=== PATIENT | male | born 1995 | race Caucasian/White ===

== ENCOUNTER 2020-05-06 22:04 | Outpatient (REF) | payer MEDICAID, SELFPAY ==
[2020-05-06 21:25] LABS: Abs Immature Grans 0.03 10^3/uL (0.0-0.06); Absolute Basophil Count 0.05 10^3/uL (0.0-0.2); Absolute Eosinophil Count 0.14 10^3/uL (0.0-0.7); Absolute Lymphocyte Count 2.79 10^3/uL (1.2-3.4); Absolute Monocyte Count 0.81 10^3/uL (0.1-0.8); Absolute Neutrophil Count 6.65 10^3/uL (1.2-6.7); Basophils % 0.5; Eosinophils % 1.3; HCT 52.2 % (40.0-50.0); HGB 17.4 g/dL (13.5-17.5); Immature Grans % 0.3; Lymphocytes % 26.6; MCH 28.2 pg (27.0-33.0); MCHC 33.3 % (32.0-36.0); MCV 84.7 fL (80-95); MPV 9.3 fL (8.0-11.0); Monocytes % 7.7; Neutrophils % 63.6; Nucleated RBC 0 %; Platelet Count 408 10^3/uL (130-400); RBC 6.16 10^6/uL (4.36-5.78); RDW 12.9 % (11.8-14.1); RDW-SD 39.8 fL; WBC 10.47 10^3/uL (4.4-10.8)
[2020-05-06 21:40] LABS: ALT 68 U/L (16-63); AST 28 U/L (15-37); Albumin 4.4 g/dL (3.4-5.0); Alkaline Phosphatase 92 U/L (46-116); Anion Gap 11.1 mmol/L (3-11); BUN 12 mg/dL (7-18); Bilirubin, Total 1.4 mg/dL (0.2-1.0); CO2 27.9 mmol/L (21.0-32.0); CREATININE 1.28 mg/dL (0.70-1.30); Calcium 9.7 mg/dL (8.5-10.1); Chloride 102 mmol/L (98-107); Glucose 87 mg/dL (74-106); Potassium 4.1 mmol/L (3.5-5.1); Sodium 141 mmol/L (136-145); Total Protein 7.9 g/dL (6.4-8.2)
[2020-05-06 21:41] LABS: Hemoglobin A1C 5.4 % (<5.7)
[2020-05-06 21:59] LABS: Calculated LDL 138 mg/dL (<100); Cholesterol 207 mg/dL (<200); HDL Cholesterol 31 mg/dL (40-60); Triglyceride 192 mg/dL (<150)
== END 2020-05-06 22:24 ==
LOC: LBN 22:04
PROVIDERS: Physician Assistant; PCP Nurse Practitioner; Visit Provider Nurse Practitioner
DX: R11.0 Nausea (principal); Z13.6 Encounter for screening for cardiovascular disorders; Z13.1 Encounter for screening for diabetes mellitus
CPT/HCPCS: 80053; 80061; 83036; 85025

== ENCOUNTER 2020-06-22 01:53 | Outpatient (CLI) | payer MEDICAID, SELFPAY ==
[2020-06-24 10:50] LABS: COVID-19 RT-PCR Result NEGATIVE (Negative)
== END 2020-06-22 02:13 ==
PROVIDERS: PCP Nurse Practitioner; Visit Provider Surgery
DX: Z11.59 Encounter for screening for other viral diseases (principal); Z01.818 Encounter for other preprocedural examination
CPT/HCPCS: U0003

== ENCOUNTER 2020-06-25 11:08 | Day surgery (SDC) | payer MEDICAID, SELFPAY ==
[2020-06-25 11:28] VITALS: BP 125/79; PULSE 117; RESP 16; TEMP 36.4; O2SAT 95
[2020-06-25] MEDS: Lactated Ringers 1,000 ML 80 ML IV (12:00)
--- NOTE | 2020-06-25 13:50 | STOM_PTH ---
PATIENT: Mike Fernandez LOC: [facility] U#:[id number] AGE/SX: 25/M ROOM: RE06/25/[address]: Janelle Singh : 1995 BED: DIS: 06/25/2020 SPEC #: [id number] RECD: 06/25/20 18:44 STATUS: GREGOR REQ #: [id number] EDWARD: 06/25/20 13:[address]: Janelle Singh DEPT: Surgical Specimen RECD BY: Myranda Lopez ENTERED: 06/25/20 18:45 SP TYPE: STOMACH OTHR DR: Pam Vazquez, PhD USER INTERFACE ARTIST Tissues: 1 - BIOPSY BOWEL 2 - STOMACH BIOPSY 3 - STOMACH BIOPSY 4 - ESOPHAGUS BIOPSY 5 - ESOPHAGUS BIOPSY 6 - ESOPHAGUS BIOPSY Procedures: GROSS AND MICRO LEVEL 4 Comments: [id number]
--- NOTE | 2020-06-25 13:57 | ENDO_ITS ---
Date of service: 06/25/20 Time of Service: 13:57 Endoscopy Report DATE OF PROCEDURE: 06/25/20 PRE-OP DIAGNOSIS: peristent nausea on PPI POST-OP DIAGNOSIS: other (normal ) PROCEDURE: EGD w/ bx SURGEON: Janelle Singh ANESTHESIA: GETA ESTIMATED BLOOD LOSS: 1 PATHOLOGY: other COMPLICATIONS: None DISPOSITION: PACU PROCEDURE DESCRIPTION: After informed consent was obtained the patient was take to the procedure room and placed in a supine position. Monitors were applied and a time out was done. The patients name, date of , procedure type, allergies to medications and metal in their body was reviewed. A bite block was placed and the patient was sedated. Once sedated and comfortable the gastroscope was advanced through the oropharynx which was grossly normal into the esophagus. The proximal and mid-esophagus were nl. No esophageal erosions varices diverticula or strictures noted. In the distal esophagus there was nl noted. The scope was advanced into the stomach and through the pylorus into the 3rd portion of the duodenum. The scope was worked into the proximal jejunum and a biopsy was done at this region. Last the duodenum was noted to be nl all specimens are retrieved and no bleeding is noted. Biopsies were done -. The scope was retracted back into the stomach and biopsies were done to rule out H. pylori. There were no ulcers/gastritis. The scope was retroflexed. The cardia and fundus were noted to be normal. There no a hiatal hernia noted. The scope was retracted back into the esophagus and biopsies were done of the GE junction to rule out Vinson's. The scope was removed and the patient was woken up and taken back to [facility] in stable condition. Follow up: 2 wks needs US Findings do not explain pt s/s. EGD is nl today. BX pd.
--- NOTE | 2020-06-25 13:58 | W.PM.DSUDISC ---
Discharge Plan Disposition Patient Disposition: HOME Condition: Good Discharge Details Reason For Visit: egd Attending Provider: Janelle Bermudez Primary Care Provider: Pam Vazquez Home Meds and New Rx's Prescriptions: No Action fluoxetine 20 mg capsule 20 mg PO DAILY Qty: 90 RF: 4 ondansetron HCl [Zofran] 4 mg tablet 4 mg PO Q8H PRN (Reason: nausea and vomiting) Qty: 10 RF: 0 calcium carbonate [Tums] 200 mg calcium (500 mg) tablet,chewable 200 mg PO BID PRNRF: 0 magnesium gluconate 500 mg tablet 500 mg PO HS RF: 0 amitriptyline 25 mg tablet 50 mg PO HS Qty: 180 RF: 3 polyethylene glycol 3350 [Miralax] 17 gram/dose powder 17 g PO DAILY PRN (Reason: constipation) Qty: 119 RF: 0 pantoprazole 20 mg tablet,delayed release (DR/EC) 20 mg PO DAILY Qty: 30 RF: 2 Discharge Instructions Additional Instructions: Findings:nomral US of abdom. Radiology will call to schedule Continue with lifestyle modifications: no alcohol, tobacco products, Aspirin or NSAID's (ibuprofen, Motrin, Naprosyn, aleve, etc). Stop smoking. Try to limits: soda pop/any carbonated beverages, caffeine (including tea & chocolate), and acidic foods, (tomatoes, citrus, onions, peppermints) spicy or fried/fatty foods. Do not lie down for 30 minutes after eating, and do not eat 2 hours prior to bedtime. Avoid wearing tight fitting clothing/ belts. No alcohol for 2weeks. Follow up: dr. bermudez in 2-3 wks Please call if you develop: fevers >101.5 Nausea or Vomiting Abdominal pain that is not transient DAY SURGERY UNIT POST COLONOSCOPY INSTRUCTIONS 1. Because there will be medication in your system for the next 24 hours, you may feel a little sleepy. Your coordination will be affected. Therefore: a. Do not drive or operate dangerous equipment for 24 hours. b. Do not drink alcohol beverages for 24 hours (not even beer). c. Plan to go home and rest for the day. 2. Generally there are no restrictions on your activity after a day or so has gone by, but you may feel a bit fatigued for a few days. 3 After you arrive home you may have a light meal and return to a normal diet as you can tolerate it without feeling sick to your stomach. 4. After surgery, you may feel pain or discomfort. This should be only transient, but if it persists please contact your doctor. 5. If there are any questions regarding the findings of your procedure, please feel free to contact your doctor. 6. If you are unable to contact your doctor with a problem, contact the hospital at [phone]. 7. Continue all your regular medications unless directed otherwise. I understand the above instructions and have no questions. Signature of Patient or Responsible Adult Escort Date/Time Name of Responsible Adult Escort Signature of Nurse Date/Time Activity:: no lifting over 20#'s or strenuous activity x 24 hrs Diet:: small/ light/soft meals x 24 hrs Discharge Orders Discharge Orders: Discharge Order (Routine); Ordered 06/25/20 Ordered By: Janelle Bermudez DS: Diagnosis Discharge Diagnosis (1) Nausea: Status: Acute
[2020-06-25 14:33] VITALS: BP 132/86; PULSE 114; RESP 16; TEMP 37; O2SAT 94
== END 2020-06-25 14:47 | disposition home or self-care (01) ==
PROVIDERS: PCP Nurse Practitioner; Visit Provider Surgery
PROC: 0DJ68ZZ Inspection of Stomach, Via Natural or Artificial Opening Endoscopic (ICD-10-PCS; CPT 43235; principal; 2020-06-25 11:15)
DX: R11.0 Nausea (principal); K31.89 Other diseases of stomach and duodenum; K21.00 Gastro-esophageal reflux disease with esophagitis, without bleeding
CPT/HCPCS: 43239; 88305; J2001

== ENCOUNTER 2020-07-13 02:51 | Outpatient (CLI) | payer MEDICAID, SELFPAY ==
--- NOTE | 2020-07-13 07:15 | DI.US_ITS ---
EXAM: US ABDOMEN CLINICAL HISTORY: Nl EGD/peristent nausea /elevated alk phos,,R11.0 TECHNIQUE: Ultrasound abdomen performed using standard protocol. COMPARISON: No exams were available for comparison FINDINGS: ABDOMINAL AORTA AND IVC: Visualized portions normal caliber. PANCREAS: Normal where visualized. LIVER: There is diffuse increased echogenicity of the liver consistent with fatty infiltration. The liver measures 15.4 cm in length. Hepatopedal flow in the Portal Vein. GALLBLADDER: No evidence of cholelithiasis. No evidence of wall thickening. No pericholecystic fluid identified. BILIARY SYSTEM: Common bile duct measures < 7 mm. No intrahepatic biliary ductal dilation. FREDERICK'S SIGN: Negative. KIDNEYS: Kidneys are symmetric in size. No evidence of renal calculi. No evidence of hydronephrosis. No renal mass or cyst identified. SPLEEN: Not enlarged. ASCITES: None seen. IMPRESSION: Fatty infiltration of the liver. DATA REPOSITORY:
== END 2020-07-13 03:11 ==
PROVIDERS: PCP Nurse Practitioner; Visit Provider Surgery
DX: K76.0 Fatty (change of) liver, not elsewhere classified (principal); R11.0 Nausea
CPT/HCPCS: 76700

== ENCOUNTER 2021-10-22 19:30 | Emergency (ER) | payer MEDICAID, SELFPAY ==
[2021-10-22 19:44] VITALS: BP 100/66; PULSE 80; RESP 18; TEMP 36.8; O2SAT 98
--- NOTE | 2021-10-22 20:41 | W.ED.GENAD ---
Discharge Plan Disposition Patient Disposition: HOME Condition: Improving Discharge Details Clinical Impression: Finger laceration Primary Care Provider: Pam Vazquez ED Provider: Conor Rodriguez Home Meds and New Rx's Prescriptions: Continued fluoxetine 20 mg capsule 20 mg PO DAILY Qty: 90 4RF calcium carbonate [Tums] 200 mg calcium (500 mg) tablet,chewable 200 mg PO BID PRN0RF doxycycline hyclate 100 mg capsule 100 mg PO BID Qty: 20 0RF polyethylene glycol 3350 [Miralax] 17 gram/dose powder 17 g PO DAILY PRN (Reason: constipation) Qty: 119 0RF lansoprazole [Prevacid] 30 mg capsule,delayed release(DR/EC) 30 mg PO DAILY Qty: 30 12RF amitriptyline 25 mg tablet 50 mg PO HS Qty: 180 3RF ondansetron HCl [Zofran] 4 mg tablet 4 mg PO Q8H PRN (Reason: nausea and vomiting) Qty: 60 0RF Discharge Instructions Instructions: Finger Laceration (ED) Additional Instructions: Tetanus status updated. At this time closure was obtained using Dermabond and then a finger splint was applied, sutures were declined. Wear splint for 7-10 days. [id number] Tylenol and/or Motrin as directed for discomfort. Please watch for new or worsening symptoms and return to the ER for any concerns Medical Decision Making 26-year-old gentleman, [id number], presents for a right fourth finger laceration that he sustained 1 hour ago. Tetanus status will need to be updated. Patient would prefer not to have sutures. The laceration was thoroughly cleaned and then approximated using Dermabond and then a splint was applied. Patient tolerated well and has no additional questions or concerns. Standard discharge and return precautions were provided. This documentation was generated using [employer]ET[employer]ation system, please disregard any oddities of phrase or misspellings. Medical Records Medical records reviewed: Yes I reviewed the patient's medical records. HPI General Mode of arrival: ambulatory. Date/Time Provider Initiated Documentation: 10/22/21 20:06. Limitations to Documentation: no limitations. Information obtained by: patient. History of Present Illness 26 year old M presents to the emergency department with the chief complaint of hand lac, described as mild, with intensity rated at 2. Quality is described as aching, and is localized to the right and upper extremity. Patient reports no radiation. Patient started experiencing this hour(s) (1) and it has been constant. No exacerbating factors reported . Patient notes no other symptoms.. Patient did receive the following treatments prior to arrival, none Related Data Home Medications Medication Instructions Recorded Confirmed fluoxetine 20 mg capsule 20 mg PO DAILY #90 cap 08/08/19 12/23/20 polyethylene glycol 3350 17 17 g PO DAILY PRN #119 g 05/14/20 12/23/20 gram/dose oral powder (Miralax) calcium carbonate 200 mg calcium 200 mg PO BID PRN 06/14/20 12/23/20 (500 mg) chewable tablet (Tums) amitriptyline 25 mg tablet 50 mg PO HS #180 tab-cap 08/05/20 12/23/20 lansoprazole 30 mg capsule,delayed 30 mg PO DAILY #30 cap 08/05/20 12/23/20 release (Prevacid) doxycycline hyclate 100 mg capsule 100 mg PO BID #20 cap 12/23/20 12/23/20 ondansetron HCl 4 mg tablet 4 mg PO Q8H PRN #60 tab 02/01/21 (Zofran) Previous Rx's Medication Instructions Recorded fluoxetine 20 mg capsule 20 mg PO DAILY #90 cap 08/08/19 polyethylene glycol 3350 17 17 g PO DAILY PRN #119 g 05/14/20 gram/dose oral powder (Miralax) amitriptyline 25 mg tablet 50 mg PO HS #180 tab-cap 08/05/20 lansoprazole 30 mg capsule,delayed 30 mg PO DAILY #30 cap 08/05/20 release (Prevacid) doxycycline hyclate 100 mg capsule 100 mg PO BID #20 cap 12/23/20 ondansetron HCl 4 mg tablet 4 mg PO Q8H PRN #60 tab 02/01/21 (Zofran) Allergies Allergy/AdvReac Type Severity Reaction Status Date / Time No Known Drug Allergies Allergy Verified 12/23/20 14:31 General Stated Complaint: Laceration JANNY: 4 Review of Systems Constitutional Constitutional: Denies weakness Musculoskeletal Musculoskeletal: Denies deformity, Denies arthralgias, Denies numbness, Denies stiffness and Denies tingling Integumentary/Breasts Skin/Breast: Reports erythema Neurologic Neurologic: Denies numbness, Denies tingling and Denies weakness PFSH All Active Problems Finger laceration (Acute) Epididymitis (Acute) Nausea (Acute) Nausea (Acute) Insomnia (Acute) Mild obstructive sleep apnea (Acute) sleep study 03/21/19-Dr Zimmer 04/14/19-sleep clinic note: CPAP rx. Gastroesophageal reflux disease (Acute 09/05/16) Depression with anxiety (Acute 09/05/16) Medical History Attention deficit hyperactivity disorder (ADHD) (09/05/16) Surgical History History of esophagogastroduodenoscopy (EGD) (~06/25/20) Family History Mother Depression Father Alcohol abuse Heart disease Depression Paternal Grandfather Testicular cancer Heart disease Sister Depression Maternal Grandfather Heart disease Maternal Grandmother Heart disease Paternal Grandmother Heart disease Social History Smoking/Tobacco Use Status: Never Smoking risk assessment performed?: Yes Alcohol Intake: current Alcohol Intake frequency: a few times a month Alcohol type: beer, wine and hard liquor Drug use: Never Substance use type: does not use Adopted: No Household members: significant other and family Housing: apartment Communication Needs: None Do you need help understanding health information?: Often Pets and animals: No Sexually active: Yes Do you think of yourself as: bisexual Current gender identity: male What is your relationship status?: living with partner How often do you talk on the phone with friends or family?: twice per week How often do you get together with friends or relatives?: twice per week How often do you attend worship or jehovah's witness services?: 1-3 times per year Do you belong to any clubs or organized social groups?: no Panel score (0-1 are the most socially isolated patients): 2 What type of physical activity do you participate in: other Details: lacrosse and running Duration: 15-30 minutes/day Frequency: 5-6 times per week Melonie/Tenriism: Druze Special melonie needs: No Seatbelt use: always Drive intox or ride w/intox bobtail driver: No Do you feel safe at home: Yes Do you feel safe in your relationship?: Yes Exam Const General: cooperative, healthy appearing, comfortable and no acute distress Orientation: alert and awake [facility] Head: normal to inspection, normocephalic and atraumatic Eyes Conjunctivae: conjunctivae normal Neck Neck: normal visual inspection, trachea midline and supple Resp Effort & Inspection: normal respiratory effort and able to speak in complete sentences Cardio Rate: regular rate Rhythm: regular rhythm Skin General skin exam: no rashes or lesions noted Neuro General: patient alert, patient awake, moves all extremities and no focal motor deficits Cognition: normal cognition Speech: speech normal Gait: normal gait Motor: muscle tone normal throughout Sensory Exam: no sensory deficits noted Extrem General: full ROM and capillary refill normal Hand/finger images: 1. There is a well approximated 1.5 cm laceration. No active bleeding. No tenderness. Full range of motion. 5-5 strength. Neuro, vascular, tendon intact. No obvious foreign body. Psych Appearance: grossly normal Mental Status: mental status grossly normal Course Vital Signs Vital signs: Vital Signs Temperature 36.8 C 10/22/21 19:44 Pulse 80 10/22/21 19:44 Respiratory Rate 18 10/22/21 19:44 Blood Pressure 100/66 10/22/21 19:44 Pulse Oximetry 98 10/22/21 19:44 Temperature 36.8 C 10/22/21 19:44 Temperature Source Tympanic 10/22/21 19:44 Pulse 80 10/22/21 19:44 Respiratory Rate 18 10/22/21 19:44 Respiratory Effort 10/22/21 19:47 Blood Pressure 100/66 10/22/21 19:44 Blood Pressure Position Supine 10/22/21 19:44 Pulse Oximetry 98 10/22/21 19:44 Oxygen Delivery Method Room Air 10/22/21 19:44 Oxygen Flow Rate 0 10/22/21 19:44 Pain Level 0 10/22/21 19:44 PAWSS Have you Been Recently Intoxicated or Drunk Within the Last 30 days?: No Have you Ever Experienced Previous Episodes of Alcohol Withdrawal?: No Have you ever Experienced Withdrawal Seizures?: No Have you ever Experienced Delirium Tremens(DT)s?: No Have you ever undergone Alcohol Rehabilitation Treatment (i.e, inpt ot outpatient treatment programs)?: No Have you ever Experienced Blackouts?: No Have you ever Combined Alcohol with other Downers within the last 90 days?: No Have you ever Combined Alcohol with any other Substance of Abuse during the last 90 days?: No Positive Blood Alcohol level on Presentation? [PCS.BAL]: No Evidence of Increased Autonomic Activity (i.e. HR>120, tremor, sweating, agitation, nausea)?: No Result: 0
== END 2021-10-22 20:48 | disposition home or self-care (01) ==
PROVIDERS: Emergency Provider Physician Assistant; PCP Nurse Practitioner
DX: S61.214A Laceration without foreign body of right ring finger without damage to nail, initial encounter (principal); W26.0XXA Contact with knife, initial encounter
CPT/HCPCS: 12001; 29130; 90471

== ENCOUNTER 2023-04-11 23:43 | Emergency (ER) | payer MEDICAID, SELFPAY ==
[2023-04-11 23:47] VITALS: BP 160/84; PULSE 117; RESP 18; O2SAT 97
--- NOTE | 2023-04-11 23:50 | ED.GENADUL_ITS ---
Discharge Plan Disposition Patient Disposition: Home Discharge Details Chief Complaint: Orthopedic Clinical Impression: Sprain of ankle, right Primary Care Provider: Unknown,Unknown ED Provider: Humberto Murrell Home Meds and New Rx's Prescriptions: No Action fluoxetine 20 mg capsule 20 mg PO DAILY Qty: 90 4RF Patient Comments: not taking 04/11/23 calcium carbonate [Tums] 200 mg calcium (500 mg) tablet,chewable 200 mg PO BID PRN Patient Comments: not taking 04/11/23 doxycycline hyclate 100 mg capsule 100 mg PO BID Qty: 20 0RF Patient Comments: not taking 04/11/23 polyethylene glycol 3350 [Miralax] 17 gram/dose powder 17 g PO DAILY PRN (Reason: constipation) Qty: 119 0RF Patient Comments: not taking 04/11/23 lansoprazole [Prevacid] 30 mg capsule,delayed release(DR/EC) 30 mg PO DAILY Qty: 30 12RF Patient Comments: not taking 04/11/23 amitriptyline 25 mg tablet 50 mg PO HS Qty: 180 3RF Patient Comments: not taking 04/11/23 ondansetron HCl [Zofran] 4 mg tablet 4 mg PO Q8H PRN (Reason: nausea and vomiting) Qty: 60 0RF Patient Comments: not taking 04/11/23 Discharge Instructions Instructions: Ankle Sprain (ED) Additional Instructions: At this time your x-ray shows no evidence of fracture thankfully. Please take Tylenol and Motrin as needed for pain. Please use the ankle boot for the next 1 to 2 weeks to help as your foot heals. If you notice any worsening of your symptoms, or any new symptoms such as vomiting, diarrhea, fever, chills, shortness of breath, chest pain, numbness, weakness, or fainting , please return immediately to the emergency department for reevaluation. Please follow up with your primary care provider as soon as possible for reassessment and reevaluation. As always, it was a pleasure participating in your medical care today. Medical Decision Making 28-year-old male with no significant past medical history except for GERD, presents today for evaluation of right lateral foot pain. Patient states that he was walking in his house, and his foot stepped on an object on the ground which caused his foot to invert. He heard a pop and immediately had pain in the lateral aspect of his right foot. Pain is made worse with movement. Improved by nothing. Pain/injury occurred about 3 hours ago. No numbness or tingling. No other complaints at this time. Exam demonstrates tenderness over the lateral aspect of the foot over the fifth metatarsal. No signs of bruising or significant swelling. No tenderness over the medial or lateral malleolus. No other abnormalities. Suspect potential osseous or ligamentous injury. Will give NSAIDs and get an x-ray, monitor closely and reassess. X-ray negative for any evidence of fracture. Will give a short walking boot for home. Suspect mild ligamentous sprain. Recommend NSAIDs at home. Discussed red flags for which to return. I have extensively reviewed the treatment plan and discharge instructions with the patient. I have addressed all patient concerns at this time. The patient was made aware of what symptoms to monitor for that would warrant a return to the emergency department. Discussed the plan with the patient, they demonstrate verbal understanding and agreement with our assessment and plan at this time. The documentation in this chart was dictated using Retro[employer] dictation software. Please excuse any dictation errors. FINDINGS: Bones/joints: Posterior calcaneal spur. No acute fracture or subluxation. Soft tissues: Normal. IMPRESSION: No acute bony pathology. Thank you for allowing us to participate in the care of your patient. Dictated and Authenticated by: Flaquita Workman MD 04/12/2023 12:50 AM Eastern Time ([place] & [place]) HPI General Date/Time Provider Initiated Documentation: 04/11/23 23:44 . HPI Narrative: 28-year-old male with no significant past medical history except for GERD, presents today for evaluation of right lateral foot pain. Patient states that he was walking in his house, and his foot stepped on an object on the ground which caused his foot to invert. He heard a pop and immediately had pain in the lateral aspect of his right foot. Pain is made worse with movement. Improved by nothing. Pain/injury occurred about 3 hours ago. No numbness or tingling. No other complaints at this time. Related Data Home Medications Medication Instructions Recorded Confirmed fluoxetine 20 mg capsule 20 mg PO DAILY #90 caps 08/08/19 12/23/20 polyethylene glycol 3350 17 17 g PO DAILY PRN constipation 05/14/20 12/23/20 gram/dose oral powder (Miralax) #119 grams calcium carbonate 200 mg calcium 200 mg PO BID PRN 06/14/20 12/23/20 (500 mg) chewable tablet (Tums) amitriptyline 25 mg tablet 50 mg PO HS #180 tab-caps 08/05/20 12/23/20 lansoprazole 30 mg capsule,delayed 30 mg PO DAILY #30 caps 08/05/20 12/23/20 release (Prevacid) doxycycline hyclate 100 mg capsule 100 mg PO BID #20 caps 12/23/20 12/23/20 ondansetron HCl 4 mg tablet 4 mg PO Q8H PRN nausea and 02/01/21 (Zofran) vomiting #60 tabs Previous Rx's Medication Instructions Recorded fluoxetine 20 mg capsule 20 mg PO DAILY #90 caps 08/08/19 polyethylene glycol 3350 17 17 g PO DAILY PRN constipation 05/14/20 gram/dose oral powder (Miralax) #119 grams amitriptyline 25 mg tablet 50 mg PO HS #180 tab-caps 08/05/20 lansoprazole 30 mg capsule,delayed 30 mg PO DAILY #30 caps 08/05/20 release (Prevacid) doxycycline hyclate 100 mg capsule 100 mg PO BID #20 caps 12/23/20 ondansetron HCl 4 mg tablet 4 mg PO Q8H PRN nausea and 02/01/21 (Zofran) vomiting #60 tabs Allergies Allergy/AdvReac Type Severity Reaction Status Date / Time No Known Drug Allergies Allergy Verified 12/23/20 14:31 General JANNY: 4 Review of Systems All systems reviewed & are unremarkable except as noted in HPI and below PFSH All Active Problems (Updated 04/12/23 @ 00:53 by Humberto Murrell DO) Sprain of ankle, right (Acute) Epididymitis (Acute) Nausea (Acute) Nausea (Acute) Insomnia (Acute) Mild obstructive sleep apnea (Acute) sleep study 03/21/19-Dr Zimmer 04/14/19-sleep clinic note: CPAP rx. Gastroesophageal reflux disease (Acute 09/05/16) Depression with anxiety (Acute 09/05/16) Medical History Attention deficit hyperactivity disorder (ADHD) (09/05/16) Surgical History History of esophagogastroduodenoscopy (EGD) (~06/25/20) Family History Mother Depression Father Alcohol abuse Heart disease Depression Paternal Grandfather Testicular cancer Heart disease Sister Depression Maternal Grandfather Heart disease Maternal Grandmother Heart disease Paternal Grandmother Heart disease Social History Smoking/Tobacco Use Status: Never Smoking risk assessment performed?: Yes Alcohol Intake: current Alcohol Intake frequency: a few times a month Alcohol type: beer, wine and hard liquor Drug use: Never Substance use type: does not use Adopted: No Household members: significant other and family Housing: apartment Communication Needs: None Do you need help understanding health information?: Often Pets and animals: No Sexually active: Yes Do you think of yourself as: bisexual Current gender identity: male What is your relationship status?: living with partner How often do you talk on the phone with friends or family?: twice per week How often do you get together with friends or relatives?: twice per week How often do you attend holiness or sikh services?: 1-3 times per year Do you belong to any clubs or organized social groups?: no Panel score (0-1 are the most socially isolated patients): 2 What type of physical activity do you participate in: other Details: lacrosse and running Duration: 15-30 minutes/day Frequency: 5-6 times per week Melonie/Christianity: Methodist Special melonie needs: No Seatbelt use: always Drive intox or ride w/intox tanker driver: No Do you feel safe at home: Yes Do you feel safe in your relationship?: Yes Exam Narrative Exam Narrative: 1.Const: Well-nourished, Well-developed, appearing stated age 2.Eyes: PERRL, no conjunctival injection, and symmetrical lids. 3.ENT: Atraumatic external nose and ears. Moist MM. Neck: Symmetric, trachea midline, No thyromegaly. 4.CVS: +S1/S2, No murmurs or gallops. Peripheral pulses 2+ and equal in all extremities. Brisk capillary refill in all extremities. 5.RESP: Unlabored respiratory effort. Clear to auscultation bilaterally. No wheezes rales or rhonchi 6.GI: Soft, Nontender/Nondistended, No hepatosplenomegaly. No guarding or rebound. 7.MSK: Normocephalic, Extremities w/o deformity. Exam demonstrates evidence of tenderness on the lateral aspect of the right foot over the fifth metatarsal. Patient demonstrates worsening pain with active plantarflexion and eversion. No pain with dorsiflexion and inversion. No significant calcaneal tenderness. No tenderness over the toes. No tenderness over the medial or lateral malleoli. Normal neurovascular exam. 8.Skin: Warm, Dry. No rashes or lesions. 9.Neuro: client support consultant II-XII grossly intact. Sensation grossly intact, no focal neurologic deficits. 10.Psych: (AAO) x3. Appropriate mood and affect
[2023-04-12] MEDS: Ibuprofen 800 MG TAB PO (00:12)
[2023-04-12] MEDS: Acetaminophen 500 MG TAB 1000 MG PO (00:12)
--- NOTE | 2023-04-12 00:51 | DI.VRAD_ITS ---
PROCEDURE INFORMATION: Exam: XR Right Foot Exam date and time: 04/12/2023 00:17 Age: 28 years old Clinical indication: Other: Right lateral foot pain after inversion TECHNIQUE: Imaging protocol: Radiologic exam of the right foot. Views: 3 or more views. COMPARISON: No relevant prior studies available. FINDINGS: Bones/joints: Posterior calcaneal spur. No acute fracture or subluxation. Soft tissues: Normal. IMPRESSION: No acute bony pathology. Dictated and Authenticated by: Flaquita Workman MD. Ordering:MK Paul MD
--- NOTE | 2023-04-12 23:45 | DI.RAD_ITS ---
Exam(s) XR FOOT RT COMPLETE EXAM: XR FOOT RT COMPLETE CLINICAL HISTORY: right lateral foot pain after inversion. TECHNIQUE: 2D digital imaging was performed of the right foot. Three images were obtained. AP, obl ique and lateral views were obtained. COMPARISON: No exams were available for comparison FINDINGS: BONES: No acute fracture is present. No bony destructive lesion is seen. There is a small enthesophyt e at the posterior calcaneus. JOINTS: No dislocation present. SOFT TISSUE: Normal. IMPRESSION: No acute abnormality. DATA REPOSITORY: RADIATION DOSE DELIVERED:
== END 2023-04-12 01:10 | disposition home or self-care (01) ==
PROVIDERS: Emergency Provider Student in an Organized Health Care Education/Training Program
DX: S93.401A Sprain of unspecified ligament of right ankle, initial encounter (principal); W01.0XXA Fall on same level from slipping, tripping and stumbling without subsequent striking against object, initial encounter; Y93.01 Activity, walking, marching and hiking; Y92.018 Other place in single-family (private) house as the place of occurrence of the external cause; Y99.9 Unspecified external cause status
CPT/HCPCS: 99283; 73630

== ENCOUNTER 2024-05-15 17:50 | Emergency (ER) | payer MEDICAID, SELFPAY ==
[2024-05-15 17:54] VITALS: BP 128/89; PULSE 104; RESP 16; TEMP 36.2; O2SAT 97
[2024-05-15] MEDS: Ketorolac 30 MG/ML VIAL 15 MG IVP (18:24)
[2024-05-15] MEDS: Dexamethasone 4 MG/ML VIAL IVP (18:24)
[2024-05-15] MEDS: Ondansetron 4 MG/2 ML VIAL IVP (18:25)
[2024-05-15] MEDS: Normal Saline 500 ML IV (18:25)
--- NOTE | 2024-05-15 18:39 | ED.GENADUL_ITS ---
Discharge Plan Disposition Patient Disposition: Home Condition: Stable Discharge Details Clinical Impression: Headache, Nausea Primary Care Provider: Unknown,Unknown ED Provider: Graciela Yarbrough Home Meds and New Rx's Prescriptions: Continued fluoxetine 20 mg capsule 20 mg PO DAILY Qty: 90 4RF Patient Comments: not taking 04/11/23 calcium carbonate [Tums] 200 mg calcium (500 mg) tablet,chewable 200 mg PO BID PRN Patient Comments: not taking 04/11/23 doxycycline hyclate 100 mg capsule 100 mg PO BID Qty: 20 0RF Patient Comments: not taking 04/11/23 polyethylene glycol 3350 [Miralax] 17 gram/dose powder 17 g PO DAILY PRN (Reason: constipation) Qty: 119 0RF Patient Comments: not taking 04/11/23 lansoprazole [Prevacid] 30 mg capsule,delayed release(DR/EC) 30 mg PO DAILY Qty: 30 12RF Patient Comments: not taking 04/11/23 amitriptyline 25 mg tablet 50 mg PO HS Qty: 180 3RF Patient Comments: not taking 04/11/23 ondansetron HCl [Zofran] 4 mg tablet 4 mg PO Q8H PRN (Reason: nausea and vomiting) Qty: 60 0RF Patient Comments: not taking 04/11/23 Discharge Instructions Instructions: Headache, Adult ED, Nausea and Vomiting, Adult ED Additional Instructions: Follow up with primary care provider in 3-5 days. Return to ED sooner if any worsening or concerns. Increase oral fluids. Take the nausea medications as directed. Referrals: Primary Care Provider [Outside] - 5 days HPI General Mode of arrival: ambulatory . Date/Time Provider Initiated Documentation: 05/15/24 18:05 . Limitations to Documentation: no limitations . Information obtained by: patient, RN notes reviewed and old records reviewed . HPI Narrative: 29-year-old male presents to the ER with chief complaint of headache which started around 1:00 today, lightheadedness nausea. He does appear somewhat pale does have a history of ADHD. Denies any recent head injuries denies any fever cough URI type symptoms or any other concerns. Denies any visual disturbances or blurry vision. Related Data Home Medications ?Medication ?Instructions ?Recorded ?Confirmed fluoxetine 20 mg capsule 20 mg PO DAILY #90 caps 08/08/19 12/23/20 polyethylene glycol 3350 17 17 g PO DAILY PRN constipation 05/14/20 12/23/20 gram/dose oral powder (Miralax) #119 grams calcium carbonate (Tums) 200 mg PO BID PRN 06/14/20 12/23/20 amitriptyline 25 mg tablet 50 mg (2 x 25 mg) PO HS #180 08/05/20 12/23/20 tab-caps lansoprazole 30 mg capsule,delayed 30 mg PO DAILY #30 caps 08/05/20 12/23/20 release (Prevacid) doxycycline hyclate 100 mg capsule 100 mg PO BID #20 caps 12/23/20 12/23/20 ondansetron HCl 4 mg tablet 4 mg PO Q8H PRN nausea and 02/01/21 (Zofran) vomiting #60 tabs Previous Rx's ?Medication ?Instructions ?Recorded fluoxetine 20 mg capsule 20 mg PO DAILY #90 caps 08/08/19 polyethylene glycol 3350 17 17 g PO DAILY PRN constipation 05/14/20 gram/dose oral powder (Miralax) #119 grams amitriptyline 25 mg tablet 50 mg (2 x 25 mg) PO HS #180 08/05/20 tab-caps lansoprazole 30 mg capsule,delayed 30 mg PO DAILY #30 caps 08/05/20 release (Prevacid) doxycycline hyclate 100 mg capsule 100 mg PO BID #20 caps 12/23/20 ondansetron HCl 4 mg tablet 4 mg PO Q8H PRN nausea and 02/01/21 (Zofran) vomiting #60 tabs Allergies Allergy/AdvReac Type Severity Reaction Status Date / Time No Known Drug Allergies Allergy Other (See Verified 05/15/24 17:57 Comment) General Stated Complaint: Headache JANNY: 4 Review of Systems All systems reviewed & are unremarkable except as noted in HPI and below Constitutional Constitutional: Reports as per HPI and Reports headache(s) ENT Ears, Nose, Mouth, and Throat: Reports headache(s) Gastrointestinal Gastrointestinal: Reports nausea Neurologic Neurologic: Reports headache(s) Exam Narrative Exam Narrative: Constitutional: Alert and oriented x3. Appears stated age. Normal body habitus. Head: Normocephalic, no trauma. Eyes: Pupils PERRL, Red reflex noted, EOM's intact. Eyelids symmetrical without lesions, discharge, or swelling. ENT: Bilateral TM's WNL, External ear normal to inspection, no mastoid TTP, swelling, or erythema, Nasal turbinates WNL, no nasal discharge. Normal dentition, Posterior pharynx WNL, no exudate. Chest: RRR, Normal S1, S2, distal pulses intact. Resp: Lungs clear to auscultation bilaterally, no wheezes, rales, or rhonchi. Abdomen: Soft, non-distended, Normoactive bowel sounds all 4 quads. Musculoskeletal: Normal gait, Moves all 4 extremities without difficulty. Skin: No suspicious rashes or lesions. Capillary refill less than 2 sec. Neurologic: Cranial nerves II-XII intact. Alert and oriented x 3. Motor: No deficits noted. Sensory: Intact bilaterally all 4 extremities. Hematologic/Lymphatic: No ecchymosis, no lymphadenopathy. Course Vital Signs Vital signs: Vital Signs Temperature 36.2 C L 05/15/24 17:54 Pulse 104 H 05/15/24 17:54 Respiratory Rate 16 05/15/24 17:54 Blood Pressure 128/89 05/15/24 17:54 Pulse Oximetry 97 05/15/24 17:54 Temperature 36.2 C L 05/15/24 17:54 Temperature Source Temporal Artery Scan 05/15/24 17:54 Pulse 104 H 05/15/24 17:54 Respiratory Rate 16 05/15/24 17:54 Blood Pressure 128/89 05/15/24 17:54 Blood Pressure Position Sitting 05/15/24 17:54 Pulse Oximetry 97 05/15/24 17:54 Oxygen Delivery Method Room Air 05/15/24 17:54 Oxygen Flow Rate 0 05/15/24 17:54 Pain Level 5 05/15/24 17:54 Medical Decision Making 29-year-old male presents to the ER with chief complaint of headache which started around 1:00 today, lightheadedness nausea. He does appear somewhat pale does have a history of ADHD. Denies any recent head injuries denies any fever cough URI type symptoms or any other concerns. Denies any visual disturbances or blurry vision. IV, normal saline 500 cc ordered, dexamethasone, Toradol, Zofran ordered. On patient reevaluation he reports feeling somewhat better. IV is infusing at this time. Patient is feeling better he is requesting to be discharged home. Instructed return instructions and follow-up care. This text was generated using Nuance dictation system, please disregard any oddities of phrase or misspellings. Quality:SDOH Health Related Social Needs: No Data to Display PFSH All Active Problems (Updated 05/15/24 @ 19:18 by Graciela Yarbrough NP) Nausea (Acute) Headache (Acute) Epididymitis (Acute) Nausea (Acute) Nausea (Acute) Insomnia (Acute) Mild obstructive sleep apnea (Acute) sleep study 03/21/19-Dr Zimmer 04/14/19-sleep clinic note: CPAP rx. Gastroesophageal reflux disease (Acute 09/05/16) Depression with anxiety (Acute 09/05/16) Medical History Attention deficit hyperactivity disorder (ADHD) (09/05/16) Surgical History History of esophagogastroduodenoscopy (EGD) (~06/25/20) Family History Mother Depression Father Alcohol abuse Heart disease Depression Paternal Grandfather Testicular cancer Heart disease Sister Depression Maternal Grandfather Heart disease Maternal Grandmother Heart disease Paternal Grandmother Heart disease Social History Smoking/Tobacco Use Status: Never Smoking risk assessment performed?: Yes Alcohol Intake: current Alcohol Intake frequency: a few times a month Alcohol type: beer, wine and hard liquor Drug use: Never Substance use type: does not use Adopted: No Household members: significant other and family Housing: apartment Communication Needs: None Do you need help understanding health information?: Often Pets and animals: No Sexually active: Yes Do you think of yourself as: bisexual Current gender identity: male What is your relationship status?: living with partner How often do you talk on the phone with friends or family?: twice per week How often do you get together with friends or relatives?: twice per week How often do you attend buddhist or baptism services?: 1-3 times per year Do you belong to any clubs or organized social groups?: no Panel score (0-1 are the most socially isolated patients): 2 What type of physical activity do you participate in: other Details: lacrosse and running Duration: 15-30 minutes/day Frequency: 5-6 times per week Melonie/Methodist: Worship Special melonie needs: No Seatbelt use: always 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
[2024-05-15] MEDS: Ondansetron O.D.T. 4 MG TABEF, 3 TABS/BTL PO (19:22)
--- OUTSIDE RECORDS SUMMARY | 2024-05-15 20:34 | XMS_ITS | Encounter Summary ---
Author Organization [facility]ly [facility] [place] [address] Care Team Providers Care Waste Examiner Name Role Phone Pam Vazquez APRN Primary Care Provider [phone] Encounter Details Date Type Department Care Team (Late st Contact Info) Description 03/24/2021 11:59 PM EDT Anesthesia Event Gastroenterology at [facility] [place] [address] [facility] [address] ANESTHESIOLOGY [place] [id number] Anesthesia Record Procedure Summary Procedure Name Responsible Anesthesiologist Anesthesia Start Time Anesthesia Stop Time COLONOSCOPY, DIAGNOSTIC (WRVU 3.26) (Trunk) Events No events on file. Meds * Agents No agents on file. * Blood No blood administrations on file. Lines, Drains, and Airways No LDAs on file. documented in this encounter Social History Tobacco Use Types Packs/Day Years Used Date Smoking Tobacco: Never Smokeless Tobacco: Never Alcohol Use Standard Drinks/Week Comments Not Currently 0 (1 standard drink = 0.6 oz pur e alcohol) Used to be a heavy drinker Sex and Gender Information Value Date Recorded Sex Assigned at Not on file Gender Identity Not on file Sexual Orientation Not on file documented as of this encounter OR Notes * Anesthesia Preprocedure Evaluation - Katy Kay MD - 03/24/2021 11:42 AM EDT Pre-Anesthesia Evaluation for: Mike Fernandez a 26 y.o. male. Procedure(s): COLONOSCOPY, DIAGNOSTIC EGD, UPPER GI ENDOSCOPY There are no problems to display for this patient. Past Medical History: Diagnosis Date ??? ADHD ??? Chronic epididymitis ??? Fatty liver History reviewed. No pertinent surgical history. Social History Tobacco Use ??? Smoking status: Never Smoker ??? Smokeless tobacco: Never Used Substance Use Topics ??? Alcohol use: Not Currently Comment: Used to be a heavy drinker Social History Substance and Sexual Activity Drug Use Not Currently No Known Allergies Medications: MAR and/or home medications have been reviewed. Physical Exam: Preprocedure Vitals Current as of 03/24/21 1142 No BP, pulse, respiration, SpO2, or temperature recorded. Height: Weight: BMI: IBW: Anesthesia Physical Exam Last Filed Perioperative Cognitive Screening None Anesthesia Plan: ASA 2 general, with a(n) intravenous induction 26 yo male with chronic abdominal pain for EGD/Colonoscopy under Propofol/mask airway, std monitors. ADHD Region - Other Informed Consent: Anesthesia Screening documented in this encounter Plan of Treatment Scheduled Procedures Name Priority Associated Diagnoses Date/Ti me COLONOSCOPY, DIAGNOSTIC (WRV U 3.26) EGD/Henry/[place] OFF PPI/Colonoscopy with anesthesia (for anxiety) for heartburn and nausea EGD, UPPER GI ENDOSCOPY (WRV U 2.09) EGD/Henry/[place] OFF PPI/Colonoscopy with anesthesia (for anxiety) for heartburn and nausea documented as of this encounter Visit Diagnoses Not on filedocumented in this encounter Care Teams Waste Examiner Relationship Specialty Start Date End Date Pam Vazquez APRN [address] [place] [address] PCP - General Family Medicine 12/24/20 documented as of this encounter
--- OUTSIDE RECORDS SUMMARY | 2024-05-15 20:34 | XMS_ITS | Encounter Summary ---
Author Organization Formerly [facility] [place] [address] Care Team Providers Care Helpdesk Analyst Name Role Phone Pam Vazquez APRN Primary Care Provider [phone] Encounter Details Date Type Department Care Team (Late st Contact Info) Description 02/18/2021 [place] [address] Yu Alvares Social History Tobacco Use Types Packs/Day Years [...] on file documented as of this encounter Miscellaneous Notes * Telephone Encounter - Yu Alvares - 02/18/2021 2:00 PM EDT [facility] CHECKLIST 02/18/20[address] [facility] [address] [id number] : 1995 REFERRING PROVIDER: Hernán Stacy PRIMARY CARE PROVIDER: Pam Vazquez APRN PRIMARY SYMPTOM (PROCEDURE INDICATION): heartburn and nausea/vomiting EGD/[place] OFF PPI/Colonoscopy with anesthesia (for anxiety) for heartburn and nausea SAFETY QUESTIONS PACEMAKER/DEFIBRILLATOR? no NEUROSTIMULATOR? no ESOPHAGEAL VARICES? no SENSITIVITY OR ALLERGY TO NICKEL? no BLOOD THINNERS SUCH PLAVIX, COUMADIN, PRADAXA, ELIQUIS, XARELTO, PLAVIX? no IF YES TO ANY OF THE ABOVE PRE-PROCEDURE QUESTIONS, please inform the patient that the test cannot be scheduled due to safety concerns about testing, and the patient should speak with their provider to consider alternative testing. The mill order scheduler should also contact the provider's office directly tonotify them that we are unable to schedule due to a contraindication to testing. Then, delete the remainder of this checklist and close out the referral. QUESTIONS TO THE PATIENT PATIENT AGREE TO IN-PERSON RETURN OF [place] WITHIN 72H OF CAPSULE PLACEMENT: yes PT AGREES THEY MUST NOT HAVE AN MRI FOR 30 DAYS AFTER [facility] CAPSULE IS PLACED (okay for pt to have echocardiogram or ultrasound): yes DIABETIC? no Diabetic patients should speak with their PCP or managing provider at least two weeks before the test to ask what medication or insulin adjustments are needed for testing. If the patient feels ill while fasting due to diabetes, it is OK to have a little apple juice - just enough to feel better. Patients fast 8 hours before testing and the test lasts 1 hour. DOES THE PATIENT USE A WHEELCHAIR? no VERBAL PATIENT INSTRUCTIONS FOR off-PPI STUDY The written instructions are very important for the patient to review and contain specific dietary and medication instructions prior to testing. These instructions will give the patient the most accurate test result. The patient should speak with their referring provider or our office if they have any questions. For this test, it is important that the patient hold proton pump inhibitors (PPIs) for seven days before testing, but it is OK to use H2-blockers (zantac, ranitidine) up to 24 hours before testing. APPOINTMENT NOTES TEMPLATE EGD [place] off PPI, symptom: heartburn and nausea/vomiting, RMD: Hernán Stacy APRN, PCP: Pam Vazquez APRN (At exit, the RMD for appointment notes is the GI provider who saw the patient) EGD PATIENT SAFETY QUESTIONS ENDO Booked by: [facility] PRIOR EGD?: yes PROBLEMS DURING PRIOR EGD?: no PLAVIX, COUMADIN, PRADAXA? no PACEMAKER/DEFIBRILLATOR? : no DIABETIC? no ALLERGIC TO LATEX, EGGS, OR MEDS? no IRON SUPPLEMENTS: no THREE OR MORE ABDOMINAL SURGERIES? no ANY PAST PROBLEMS WITH SEDATION OR ANESTHESIA? no DAILY SUPPLEMENTAL O2 OR CPAP? no DOES PT TAKE RX PAIN MEDS? no HT: 5'5 WT: 171 AGE: 26 y.o. DOES PT KNOW HE/SHE MUST HAVE A ROLL SHEETING CUTTER FOR AFTER PROCEDURE: yes documented in this encounter Plan of Treatment Scheduled Procedures Name Priority Associated Diagnoses Date/Ti me COLONOSCOPY, DIAGNOSTIC (WRV U 3.26) E[facility]/[place] OFF PPI/Colonoscopy with anesthesia (for anxiety) for heartburn and nausea EGD, UPPER GI ENDOSCOPY (WRV U 2.09) EGD/[place] OFF PPI/Colonoscopy with anesthesia (for anxiety) for heartburn and nausea documented as of this encounter Visit Diagnoses Not on filedocumented in this encounter Care Teams Helpdesk Analyst Relationship Specialty Start Date End Date Pam Vazquez APRN [address] [place] [address] PCP - General Family Medicine 12/24/20 documented as of this encounter
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
--- OUTSIDE RECORDS SUMMARY | 2024-05-15 20:34 | XMS_ITS | Encounter Summary ---
Author Organization [place] [address] Care Team Providers Care Assistant Name Role Phone Pam Vazquez APRN Primary Care Provider [phone] Encounter Details Date Type Department Care Team (Late st Contact Info) Description 02/09/2021 [place] [address] Pricila Zazueta Social History Tobacco Use Types Packs/Day Years [...] encounter Miscellaneous Notes * Telephone Encounter - Pricila Zazueta - 02/24/2021 11:00 AM EDT Left third message for patient to contact the office for scheduling. CARMENCITA Stacy would like the patient scheduled for labs, stool studies, GES and SBFT. A letter has been sent asking the patient to contact the office for scheduling. ?? Please advise patient that labs must be drawn at 8am (Cortisol). ?? Orders in for an EGD/[facility]. * Telephone Encounter - Pricila Zazueta - 02/15/2021 4:42 PM EDT Left message x 2 for patient to contact the office for scheduling. CARMENCITA Stacy would like the patient scheduled for labs, stool studies, GES and SBFT. ?? Please advise patient that labs must be drawn at 8am (Cortisol). ?? Orders in for an EGD/[facility]. * Telephone Encounter - Pricila Zazueta - 02/09/2021 8:45 AM EDT Left message for patient to contact the office for scheduling. FISHERIES MANAGEMENT BIOLOGIST Regis would like the patient scheduled for labs, stool studies, GES and SBFT. Please advise patient that labs must be drawn at 8am (Cortisol). Orders in for an EGD/[facility]. documented in this encounter Plan of Treatment Scheduled Procedures Name Priority Associated Diagnoses Date/Ti me COLONOSCOPY, DIAGNOSTIC (WRV U 3.26) EGD/[facility]/[place] OFF PPI/Colonoscopy with anesthesia (for anxiety) for heartburn and nausea EGD, UPPER GI ENDOSCOPY (WRV U 2.09) EGD/[facility]/[place] OFF PPI/Colonoscopy with anesthesia (for anxiety) for heartburn and nausea documented as of this encounter Visit Diagnoses Not on filedocumented in this encounter Care Teams Assistant Relationship Specialty Start Date End Date Pam Vazquez APRN [address] [place], [place] [address] [address] [place] [address] PCP - General Family Medicine 12/24/20 documented as of this encounter
--- OUTSIDE RECORDS SUMMARY | 2024-05-15 20:34 | XMS_ITS | Clinical Summary ---
Author Organization [facility] Address [facility] [place] [address] Care Team Providers Care Outside Sales Manager Name Role Phone Pam Vazquez APRN Primary Care Provider [phone] Allergies No known active allergies Medications Medication Sig Dispensed Refills Start Date End Date Status ondansetron (Zofran) 4 mg Tablet Take 4 mg by mouth as needed. 02/01/2021 Active esomeprazole (NexIUM) 40 mg Capsule, Delayed Release(E.C.)Indicati ons:Chronic nausea,Lower abdominal pain,RUQ abdominal pain,Constipation, unspecified constipation type,Weight loss,Heartburn Take 1 capsule by mouth daily. 30 capsule 5 02/08/2021 Active Active Problems No known active problems Family History Medical History Relation Comments Other Paternal Grandfather Testicle ca ncer Celiac Disease Neg Hx Colorectal Cancer Neg Hx Esophageal Cancer Neg Hx Inflammatory Bowel Disease Neg Hx Stomach Cancer Neg Hx Relation Status Comments Paternal Grandfather Social History Tobacco Use Types Packs/Day Years Used Date Smoking Tobacco: Never Smokeless Tobacco: Never Alcohol Use Standard Drinks/Week Comments Not Currently 0 (1 standard drink = 0.6 oz pur e alcohol) Used to be a heavy drinker Sex and Gender Information Value Date Recorded Sex Assigned at Not on file Gender Identity Not on file Sexual Orientation Not on file Last Filed Vital Signs Vital Sign Reading [...] Mass Index 28.59 02/08/2021 1:16 PM EDT Plan of Treatment Scheduled Procedures Name Priority Associated Diagnoses Date/Ti me COLONOSCOPY, DIAGNOSTIC (WRV U 3.26) EGD/[facility]/[place] OFF PPI/Colonoscopy with anesthesia (for anxiety) for heartburn and nausea EGD, UPPER GI ENDOSCOPY (WRV U 2.09) EGD/[facility]/[place] OFF PPI/Colonoscopy with anesthesia (for anxiety) for heartburn and nausea Health Maintenance Due Date Last Done Comments HIV screen 01/07/2014 Hepatitis C Screening 01/07/2014 Hepatitis B vaccine (0-59 yrs) (1) 01/07/2015 Tetanus/Diphtheria/Pertussis Vaccines (1 - Tdap) 01/07 Covid-19 Vaccine (1 - season) 2024 Influenza (Flu) vaccine (1 o f 1 - Influenza standard series) 03/23/2024 Care Teams Outside Sales Manager Relationship Specialty Start Date End Date Pam Vazquez APRN [address] [place] [address] PCP - General Family Medicine 12/24/20
--- OUTSIDE RECORDS SUMMARY | 2024-05-15 20:34 | XMS_ITS | Clinical Summary ---
Author Organization [facility] Address [address] [place] [address] Care Team Providers Care Logistics Loss Prevention Manager Name Role Phone Jeniffer Devries TRANSITIONS RN CARE COORDINATOR Primary Care Provider [phone] Medications No known medications Active Problems Patient Care Coordination No te Formatting of this note migh t be different from the original. Clinic: Please confirm that PT does not have a Middle Initial. Emperatriz Argueta 11/11/2021 13:27 Clinic: Please get pts phone number and have them call pre-reg. Fabio Mancilla 02/10/2022 18:32 Problem Noted Date Diagnosed Date Acne 09/15/2021 Abnormal weight loss 02/08/2021 Constipation, unspecified 02/08/2021 Heartburn 02/08/2021 Lower abdominal pain, unspecified 02/08/2021 Right upper quadrant pain 02/08/2021 Nausea 12/23/2020 Attention deficit hyperactivity disorder (ADHD) 09/05/2016 Depression with anxiety 09/05/2016 GERD (gastroesophageal reflux disease) 7 Immunizations Name Administration Dates Next Due Covid-19 mRNA Vaccine (MODER NA COVID-19) PF 0.5 ml IM (12 yrs+) 03/14/2021,02/10/2021 DTaP Vaccine (INFANRIX) <7YO IM 04/17/20 00,04/09/1997,1996,05/13,1996 Hepatitis B Vaccine Ped/Adol escent 3-dose IM 02/05/1997,1996,1996 Hib PRP-T Conjugate Vaccine 4 Dose IM 04/09/1997 ,1996 Human Papillomavirus (HPV9) 9-Valent Vaccine (GARDASIL-9) IM 11/08/2016 Influenza Vaccine =>3yo Spli t Preservative Free IM 09/02/2013,06/26/2012 Influenza Vaccine Quad (AFLU RODRÍGUEZ) PF 0.5 ml IM (3 yrs+) 09/02/2013 MMR Vaccine SQ 08/28/1999,10/29/1998,02/05/1997 Meningococcal Conjugate (MCV 4) Vaccine (MENVEO) 4-Valent IM 08/22/2012 PolioVirus Vaccine OPV Oral 1996, 6,1996 Poliovirus Vaccine IPV IM OR SQ 04/17/2000 Td (Adult) 5 Lf Vaccine (TEN IVAC) Preservative Free =>7yo IM 02/21/2016 Tdap Vaccine =>7YO IM 09/15/2008, 000,11/01/1999,02/21 Varicella (Chickenpox) vacci ne (VARIVAX) SQ 09/15/2008,02/05/1997 Family History Medical History Relation Comments Substance Abuse Father No Known Mother Relation Status Comments Father Mother Social History Tobacco Use Types Packs/Day Years Used Date Smoking Tobacco: Never Smokeless Tobacco: Never Alcohol Use Standard Drinks/Week Comments Never 0 (1 standard drink = 0.6 oz pur e alcohol) PHQ-2 Answer Date Recorded PHQ-2 SUBTOTAL 6 08/26/2021 Sex and Gender Information Value Date Recorded Sex Assigned at Not on file Gender Identity Male 03/21/2023 10:56 EDT Sexual Orientation Not on file Obstetrics History Last Filed Vital Signs Vital Sign Reading Time Taken Comments Blood Pressure 128/64 07/23/20212029 EST Pulse 68 07/23/20211955 EST Temperature 37.2 ??C (98.9 ??F) 07/23/20211955 EST Respiratory Rate 18 07/23/20211955 EST Oxygen Saturation 97% 07/23/20212029 EST Inhaled Oxygen Concentration - - Weight - - Height - - Body Mass Index - - Plan of Treatment Health Maintenance Due Date Last Done Comments Hepatitis C Screen 1996 Social Determinants Of Healt h (SDOH) 1996 Depression Screening 2008 HIV Screening 2012 Advance Directive 01/07/2014 Preventive Care Visit 01/07/2014 HPV Vaccines (2 - Male 3-dos e series) 12/06/2016 11/08/2016 COVID-19 Vaccine (3 - 2022-2 4 season) 2023 03/14/2021, 02/10/2021 Influenza Immunization (Adul t) (#1) 2024 09/02/2013, 09/02/2013, 06/26/2012 Tetanus (Adult) Immunization 02/20/202607/2015, 09/15/2008, 04/17/2000, Additional history exists Hepatitis B Vaccine Completed 02/05/1997, 1996, 1996 Pertussis (Adult) Immunization Completed 0 09/15/2008, 04/17/2000, 11/01/1999, Additional history exists Care Teams Logistics Loss Prevention Manager Relationship Specialty Start Date End Date Jeniffer Devries NP [address] [place] [phone] PCP - General Family Medicine - Primary Care 03/21/23
--- OUTSIDE RECORDS SUMMARY | 2024-05-15 20:34 | XMS_ITS | Encounter Summary ---
Author Organization [facility] [place] [address] Care Team Providers Care Freezing Machine Operator Name Role Phone Pam Vazquez APRN Primary Care Provider [phone] Encounter Details Date Type Department Care Team (Late st Contact Info) Description 02/16/2021 Telephone [place] [address] Cely Jamison Social History Tobacco Use Types Packs/Day Years [...] encounter Miscellaneous Notes * Telephone Encounter - Adrián Michael - 02/17/2021 2:55 PM EDT lvm returning patient's voicemail to schedule motility testing. * Telephone Encounter - Cely Jamison - 02/16/2021 5:27 PM EDT Patient called and lvm on Gastro 4L Exit line. He would like to schedule a motility study. He washoping it could be done next Sunday. Will route a copy of this note to The [facility] MACHINIST WOOD Pool. documented in this encounter Plan of Treatment Scheduled Procedures Name Priority Associated Diagnoses Date/Ti me COLONOSCOPY, DIAGNOSTIC (WRV U 3.26) EGD/[facility]/[place] OFF PPI/Colonoscopy with anesthesia (for anxiety) for heartburn and nausea EGD, UPPER GI ENDOSCOPY (WRV U 2.09) EGD/[facility]/[place] OFF PPI/Colonoscopy with anesthesia (for anxiety) for heartburn and nausea documented as of this encounter Visit Diagnoses Not on filedocumented in this encounter Care Teams Freezing Machine Operator Relationship Specialty Start Date End Date Pam Vazquez APRN [address] [place] [address] [address] [place] [address] PCP - General Family Medicine 12/24/20 documented as of this encounter
--- OUTSIDE RECORDS SUMMARY | 2024-05-15 20:34 | XMS_ITS | Encounter Summary ---
Author Organization [facility] [place] [address] Care Team Providers Care Library Clerk Name Role Phone Pam Vazquez APRN Primary Care Provider [phone] Encounter Details Date Type Department Care Team (Latest Contact Info) Description 03/07/2021 9:45 AM EDT Laboratory Appointment Lab [address] [place] [phone] Chronic nausea; Lower abdominal pain; RUQ abdominal pain; Constipation, unspecified constipation type; Weight loss Social History Tobacco Use Types Packs/Day Years [...] on file documented as of this encounter Plan of Treatment Scheduled Procedures Name Priority Associated Diagnoses Date/Ti me COLONOSCOPY, DIAGNOSTIC (WRV U 3.26) EGD/Henry/Lawrence OFF PPI/Colonoscopy with anesthesia (for anxiety) for heartburn and nausea EGD, UPPER GI ENDOSCOPY (WRV U 2.09) EGD/Henry/Lawrence OFF PPI/Colonoscopy with anesthesia (for anxiety) for heartburn and nausea documented as of this encounter Procedures Procedure Name Priority Date/Time Associated Diagnosis Comments HC THYROID STIMULATING HORMONE, SERUM Routine 03/07/2021 10:01 AM EDT Chronic nausea Lower abdominal pain RUQ abdominal pain Constipation, unspecified constipation type Weight loss HEMOGRAM Routine 03/07/2021 10:01 AM EDT Chronic nausea Lower abdominal pain RUQ abdominal pain Constipation, unspecified constipation type Weight loss DIFFERENTIAL, AUTOMATED Routine 03/07/20 21 10:01 AM EDT Chronic nausea Lower abdominal pain RUQ abdominal pain Constipation, unspecified constipation type Weight loss HC TISSUE TRANSGLUTAMINASE AB Routine 03/07/2021 10:01 AM EDT Chronic nausea Lower abdominal pain RUQ abdominal pain Constipation, unspecified constipation type Weight loss HC CBC,PLT & AUTO DIFF Routine 10:01 AM EDT Chronic nausea Lower abdominal pain RUQ abdominal pain Constipation, unspecified constipation type Weight loss HC HEMOGLOBIN A1C Routine 03/07/2021 10: 01 AM EDT Chronic nausea Lower abdominal pain RUQ abdominal pain Constipation, unspecified constipation type Weight loss HC IGA, SERUM Routine 03/07/2021 10:01 AM EDT Chronic nausea Lower abdominal pain RUQ abdominal pain Constipation, unspecified constipation type Weight loss HC IGG, SERUM Routine 03/07/2021 10:01 AM EDT Chronic nausea Lower abdominal pain RUQ abdominal pain Constipation, unspecified constipation type Weight loss HC VENIPUNCTURE Routine 03/07/2021 10:01 AM EDT Chronic nausea Lower abdominal pain RUQ abdominal pain Constipation, unspecified constipation type Weight loss COMPREHENSIVE METABOLIC PANEL Routine 03/07/2021 10:01 AM EDT Chronic nausea Lower abdominal pain RUQ abdominal pain Constipation, unspecified constipation type Weight loss documented in this encounter Results * (ABNORMAL) Differential, Automated (03/07/2021 10:01 AM EDT) Neutrophil % 55.5 % [facility] Neutrophil Absolute 5.93 1.70 - 6.10 x10(3)/mc L [facility] Lymph % 31.9 % [facility] Lymphocytes Abs 3.4(H) 0.9 - 3.2 x10(3)/mc L [facility] Monocyte % 9.4 % [facility] Monocyte Abs 1.0(H) 0.3 - 0.9 x10(3)/[facility] Eos % 2.1 % [facility] Eosinophils Abs 0.2 0.0 - 0.4 x10(3)/[facility] Basophil % 0.7 % [facility] Baso Absolute 0.1 0.0 - 0.1 x10(3)/[facility] Immature Gran % 0.40 % [facility] Comment: Immature granulocytes(IG's)percentage and absolute count will include metamyelocytes, myelocytes, and promyelocytes. Blood smears from CBCs yielding IG's will be scanned manually for concordance. If this scan disagrees with the automated IG or if promyelocytes are noted, a manual differential will be performed. Immature Gran Absolute 0.04 0.00 - 0.04 x10(3)/[facility] Blood 03/07/2021 10:0 1 AM EDT 03/07/2021 10:25 AM EDT Narrative Resulting Agency Comment Spec In Lab Hernán Stacy APRN HEMATOLOGY ORDERABL ES Performing Organization Address City/State/[facility] Co de Phone Number [facility] [place] [address] * (ABNORMAL) Hemogram (03/07/2021 10:01 AM EDT) White Blood Cell 10.7(H) 4.0 - 9.5 x10(3)/[facility] Red Blood Cell 5.32 4.58 - 5.54 x10(6)/[facility] Hemoglobin 15.1 13.7 - 16.5 gm/dL [facility] Hematocrit 44.5 40.5 - 48.5 % [facility] Mean Cell Volume 83.6 82.9 - 93.1 fL [facility] Mean Cell Hemoglobin 28.4 27.5 - 32.1 pg [facility] Mean Cell Hemoglobin Concentration 33.9 32.0 - 35.7 gm/dL [facility] Platelet 328 145 - 357 x10(3)/mc L [facility] RDW Standard Deviation 38.4 36.0 - 45.0 fL [facility] RDW coefficient of variation 12.7 11.4 - 13.8 % [facility] Mean Platelet Volume 9.0 7.6 - 12.9 fL [facility] NRBC% auto 0.0 % [facility] NRBC Absolute 0.000 0.000 - 0.000 x10(3)/mc L [facility] Blood 03/07/2021 10:0 1 AM EDT 03/07/2021 10:25 AM EDT Narrative Resulting Agency Comment Spec In Lab Hernán Stacy APRN HEMATOLOGY ORDERABL ES [facility] [place] [address] * Hemoglobin A1c (03/07/2021 10:01 AM EDT) Hemoglobin A1c 5.2 4.3 - 5.6 % [facility] Comment: Reference Range: 4.3 [...] Mellitus, Diabetes Care 2013; 36: Suppl. 1, W20-58 Estimated Average Glucose 102 mg/dL [facility] Comment: eAG equivalents for HbA1c percentages: HbA1c(%) ?eAG(mg/dL) 6.0 ?126 6.5 ?140 7.0 ?154 7.5 ?169 8.0 ?183 8.5 ?197 9.0 ?212 9.5 ?226 10.0 ? 240 Limitations: The eAG calculation has not been validated on women, individuals below 18 years old and above 70 years old, and individuals with hemoglobinopathies. Additional resources are available on the ADA website. Terrance MCADAMS, Alexander J, Rossi R, et al. ??Translating the A1C assay into estimated average glucose values. ??Diabetes Care 2008:31(8):7981-0755. Blood 03/07/2021 10:0 1 AM EDT 03/07/2021 10:25 AM EDT Narrative Resulting Agency Comment Spec In Lab Hernán Stacy APRN CHEMISTRY ORDERABLE S Performing Organization Address [facility] Co de Phone Number [facility] [place] [address] * Tissue transglutaminase, IgA (03/07/2021 10:01 AM EDT) [facility] TTG IgA Ab 1.0 0.1 - 10.0 u/ml [facility] Comment: Negative = <7 U/mL Equivocal = 7-10 U/mL Positive = >10 U/mL Blood 03/07/2021 10:0 1 AM EDT 03/07/2021 3:17 PM EDT Narrative Resulting Agency Comment Spec In Lab Hernán Stacy APRN IMMUNOLOGY ORDERABL ES Performing Organization Address [facility] Co de Phone Number [facility] [place] [address] * IgG (03/07/2021 10:01 AM EDT) [facility] Immunoglobulin G 788 700 - 1,600 mg/dL [facility] Comment: Pediatric Reference Intervals obtained from the Caliper Reference Interval project. http://www.[employer]ds.ca/caliperproject/index.html Blood 03/07/2021 10:0 1 AM EDT 03/07/2021 10:25 AM EDT Narrative Resulting Agency Comment Spec In Lab Hernán Stacy APRN CHEMISTRY ORDERABLE S [facility] [place] [address] * IgA (03/07/2021 10:01 AM EDT) [facility] IgA 323 70 - 400 mg/dL [facility] Blood 03/07/2021 10:0 1 AM EDT 03/07/2021 10:25 AM EDT Narrative Resulting Agency Comment Spec In Lab Hernán Stacy APRN CHEMISTRY ORDERABLE S Performing Organization Address City/[facility]/ZIP Co de Phone Number [facility] [place] [address] * Comprehensive metabolic panel (non-fasting) (03/07/2021 10:01 AM EDT) [facility] Glucose 93 65 - 199 mg/dL [facility] Comment:Diabetes: >=200 mg/d L plus symptoms Blood Urea Nitrogen 11 10 - 20 mg/dL [facility] Creatinine 0.82 0.80 - 1.50 mg/dL [facility] Sodium 142 135 - 145 mmol/L [facility] Potassium 3.8 3.5 - 5.0 mmol/L [facility] Comment: Please note: ??Patients with WBC >100,000 may have falsely elevated Potassium levels. ??For accurate Potassium quantification in these patients send serum separator tube (gold top) for subsequent determinations. ??Contact the Clinical Chemistry Laboratory if there are any questions. Chloride 102 98 - 107 mmol/L [facility] Carbon Dioxide 27 22 - 31 mmol/L [facility] Anion Gap 13 5 - 15 mmol/L [facility] Calcium 9.9 8.5 - 10.5 mg/dL [facility] Protein, Total 6.9 6.1 - 8.0 gm/dL [facility] Albumin 4.7 3.2 - 5.2 gm/dL [facility] Aspartate Aminotransferase 16 0 - 39 unit/L [facility] Alanine Aminotransferase 34 0 - 55 unit/L [facility] Alkaline Phosphatase 67 40 - 130 unit/L [facility] Bilirubin, Total 1.1 0.2 - 1.3 mg/dL [facility] Est Glomerular Filtration Rate 123 >=60 mL/min/1. 73 m?? [facility] Comment: This patient? s [...] Lab Hernán Stacy APRN CHEMISTRY ORDERABLE S [facility] [place] [address] * TSH [place] (03/07/2021 10:01 AM EDT) Thyroid Stimulating Hormone 2.10 0.27 - 4.20 mcIU/mL [facility] Comment: Reference Interval (mcIU/mL): Females: ??First Trimester: 0.23-3.88 ??Second Trimester: 0.22-3.90 ??Third Trimester: 0.44-4.66 Blood 03/07/2021 10:0 1 AM EDT 03/07/2021 10:25 AM EDT Narrative Resulting Agency Comment Spec In Lab Hernán Stacy APRN CHEMISTRY ORDERABLE S Performing Organization Address City/[facility] Co de Phone Number [facility] [place] [address] * Cortisol (03/07/2021 10:01 AM EDT) Cortisol 3.5 mcg/dL [facility] Comment: Reference ranges: ??AM (6-10am): ??4.8-19.5 mcg/dL ??PM (4-8pm) : ??2.5-11.9 mcg/dL Blood 03/07/2021 10:0 1 AM EDT 03/07/2021 10:25 AM EDT Narrative Resulting Agency Comment Spec In Lab Hernán Stacy APRN CHEMISTRY ORDERABLE S Performing Organization Address [facility] Co de Phone Number [facility] [place] [address] documented in this encounter Visit Diagnoses Diagnosis Chronic nausea Nausea alone Lower abdominal pain Abdominal pain, other specified site RUQ abdominal pain Abdominal pain, right upper quadrant Constipation, unspecified constipation type Weight loss Loss of weight documented in this encounter Care Teams Library Clerk Relationship Specialty Start Date End Date Pam Vazquez APRN [address] [place] [address] PCP - General Family Medicine 12/24/20 documented as of this encounter
--- OUTSIDE RECORDS SUMMARY | 2024-05-15 20:35 | XMS_ITS | Encounter Summary ---
Author Organization [facility] Address [address] [place] [address] Care Team Providers Care House Detective Name Role Phone Jaycob Jeniffer Callaway [employer] Primary Care Provider [phone] Encounter Details Date Type Department Care Team (Late st Contact Info) Description 01/11/2024 Lab Requisition [facility] Pathology & Laboratory Medicine - [address] [address] Outr Resulting Lab, Provider Social History Tobacco Use Types Packs/Day Years Used Date Smoking Tobacco: Never Smokeless Tobacco: Never Alcohol Use Standard Drinks/Week Comments Never 0 (1 standard drink = 0.6 oz pur e alcohol) PHQ-2 Answer Date Recorded PHQ-2 SUBTOTAL 6 08/26/2021 Sex and Gender Information Value Date Recorded Sex Assigned at Not on file Gender Identity Male 03/21/2023 10:56 EDT Sexual Orientation Not on file documented as of this encounter Plan of Treatment Not on file documented as of this encounter Procedures Procedure Name Priority Date/Time Associated Diagnosis Comments QUANTIFERON MITOGEN (PERFORMABLE) Today 01/10/2024 14:45 EDT QUANTIFERON TB2 (PERFORMABLE) Today 01/10/2024 14:45 EDT QUANTIFERON TB1 (PERFORMABLE) Today 01/10/2024 14:45 EDT QUANTIFERON NIL (PERFORMABLE) Today 01/10/2024 14:45 EDT QUANTIFERON INTERPRETATION (PERFORMABLE) Today 01/10/2024 14:45 EDT QUANTIFERON TB GOLD PLUS Routine 01/10/2024 14:45 EDT documented in this encounter Results * QUANTIFERON INTERPRETATION (PERFORMABLE) (01/10/2024 14:45 EDT) Quantiferon Interpretation Negative Negative 01/14/2024 12:02 EDT [facility] Comment:No interferon-gamma response to M. tuberculosis antigens was detected. ??Infection with M. tuberculosis is unlikely. A single negative result does not exclude infection with M. tuberculosis. ??In patients at high risk for M. tuberculosis infection, a second test should be considered. TB1 Ag minus Nil 0.00 IU/ml 01/14/20 12:02 EDT [facility] TB2 Ag minus Nil 0.00 IU/mL 01/14/20 12:02 EDT [facility] Blood VENOUS BLOOD / Unknown 01/10/2024 14:45 EDT 01/14/2024 11:58 EDT Provider Outr Resulting Lab IMMUNOLOGY A ND SEROLOGY ORDERABLES Performing Organization Address [facility] Co de Phone Number [facility] [address] [place] [address] * QUANTIFERON MITOGEN (PERFORMABLE) (01/10/2024 14:45 EDT) Blood VENOUS BLOOD / Unknown 01/10/2024 14:45 EDT 01/11/2024 17:25 EDT Provider Outr Resulting Lab IMMUNOLOGY A ND SEROLOGY ORDERABLES Performing Organization Address [facility]/ZIP Co de Phone Number [facility] [address] [place] [address] * QUANTIFERON TB2 (PERFORMABLE) (01/10/2024 14:45 EDT) Blood VENOUS BLOOD / Unknown 01/10/2024 14:45 EDT 01/11/2024 17:25 EDT Provider Outr Resulting Lab IMMUNOLOGY A ND SEROLOGY ORDERABLES Performing Organization Address City/State/[facility] Co de Phone Number [facility] [address] [place], [place] [id number] * QUANTIFERON TB1 (PERFORMABLE) (01/10/2024 14:45 EDT) Blood VENOUS BLOOD / Unknown 01/10/2024 14:45 EDT 01/11/2024 17:25 EDT Provider Outr Resulting Lab IMMUNOLOGY A ND SEROLOGY ORDERABLES Performing Organization Address [facility] Co de Phone Number [facility] [address] [place] [address] * QUANTIFERON NIL (PERFORMABLE) (01/10/2024 14:45 EDT) Blood VENOUS BLOOD / Unknown 01/10/2024 14:45 EDT 01/11/2024 17:25 EDT Provider Outr Resulting Lab IMMUNOLOGY A ND SEROLOGY ORDERABLES Performing Organization Address [facility] Co de Phone Number [facility] [address] [place] [address] documented in this encounter Visit Diagnoses Not on filedocumented in this encounter Care Teams House Detective Relationship Specialty Start Date End Date Jeniffer Devries NP [address] [place] [phone] PCP - General Family Medicine - Primary Care 03/21/23 documented as of this encounter
--- OUTSIDE RECORDS SUMMARY | 2024-05-15 20:35 | XMS_ITS | Encounter Summary ---
Author Organization [facility] Address [address] [place] [address] Care Team Providers Care Elocution Teacher Name Role Phone Unavailable Primary Care Provider Unavailabl e Encounter Details Date Type Department Care Team (Latest Contact Info) Description 03/28/2000 10:26 EDT - 03/28/2000 11:59 EDT Hospital Encounter [facility] [address] [place] [address] Genny Balderas MD [address] [place] [phone] Discharge Disposition: Auto Discharge Social History Tobacco Use Types Packs/Day Years Used Date Smoking Tobacco: Never Assessed Sex and Gender Information Value Date Recorded Sex Assigned at Not on file Gender Identity Male 03/21/2023 10:56 EDT Sexual Orientation Not on file documented as of this encounter Discharge Disposition Disposition Code Departure Means Destination Auto Discharge documented in this encounter Plan of Treatment Not on file documented as of this encounter Procedures Procedure Name Priority Date/Time Associated Diagnosis Comments NM RENAL STATIC ONLY Routine 03/28/2000 15:57 EDT documented in this encounter Results * NM RENAL STATIC ONLY (03/28/2000 15:57 EDT) Anatomical Region Laterality Modality Other 03/28/2000 15:5 7 EDT Impressions 06/01/2009 17:56 EST IMPRESSION: 1. Normal examination without evidence of renal scarring. The attending radiologist has reviewed the images and concurs with the findings described above. /law Narrative 06/01/2009 17:56 EST DMSA RENAL SCAN, SMALL RT KIDNEY R/O SCARRING/EVIDENCE OF CHRONIC INFECTION/TRUE SIZE OF KIDNEYS (ASC ??FOR HL AND WGT) RENAL [facility] SCAN DATE: 03/28/2000 TIME: 1515 hours. CLINICAL INDICATION: Small right kidney; rule out scarring/evidence of chronic infection; evaluate true size of kidneys. TECHNIQUE: Following the intravenous injection of 1.6 mCi Tc-99m DMSA, posterior and posterior oblique images were obtained in the region of the kidneys three hours following injection. FINDINGS: Scans demonstrate normal uptake within the kidneys bilaterally. Cortical scarring is not identified. The differential renal counts demonstrate 52% uptake within the left kidney and 48% uptake within the right kidney. Procedure Note Jose Soriano MD / Luis Bravo MD - 06/01/2009 DMSA RENAL SCAN, SMALL RT KIDNEY R/O SCARRING/EVIDENCE OF CHRONIC INFECTION/TRUE SIZE OF KIDNEYS (ASC FOR HL AND WGT) RENAL [facility]MSA SCAN DATE: 03/28/2000 TIME: 1515 hours. CLINICAL INDICATION: Small right kidney; rule out scarring/evidence of chronic infection; evaluate true size of kidneys. TECHNIQUE: Following the intravenous injection of 1.6 mCi Tc-99m DMSA, posterior and posterior oblique images were obtained in the region of the kidneys three hours following injection. FINDINGS: Scans demonstrate normal uptake within the kidneys bilaterally. Cortical scarring is not identified. The differential renal counts demonstrate 52% uptake within the left kidney and 48% uptake within the right kidney. IMPRESSION IMPRESSION: 1. Normal examination without evidence of renal scarring. The attending radiologist has reviewed the images and concurs with the findings described above. /law Genny Balderas MD IMG NM ORDERABLES documented in this encounter Visit Diagnoses Not on filedocumented in this encounter
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
--- OUTSIDE RECORDS SUMMARY | 2024-05-15 20:35 | XMS_ITS | Encounter Summary ---
Author Organization [facility] Address [address] [place] [address] Care Team Providers Care Zinc Etcher Name Role Phone Nirali Young MD Primary Care Provider [phone] Encounter Details Date Type Department Care Team (Latest Contact Info) Description 02/08/2015 12:38 EDT - 02/08/2015 23:59 EDT Hospital Encounter [address] [address] Unknown, Provider, Discharge Disposition: Home or Self Care Social History Tobacco Use Types Packs/Day Years Used Date Smoking Tobacco: Never Assessed Sex and Gender Information Value Date Recorded Sex Assigned at Not on file Gender Identity Male 03/21/2023 10:56 EDT Sexual Orientation Not on file documented as of this encounter Discharge Disposition Disposition Code Departure Means Destination Home or Self Senior Care documented in this encounter Plan of Treatment Not on file documented as of this encounter Visit Diagnoses Not on filedocumented in this encounter Care Teams Zinc Etcher Relationship Specialty Start Date End Date Nirali Young MD [address] [id number] PCP - General 02/19/13 07/21/15 documented as of this encounter
--- OUTSIDE RECORDS SUMMARY | 2024-05-15 20:35 | XMS_ITS | Encounter Summary ---
Author Organization [facility] Address [address] [place] [address] Care Team Providers Care Helper Chicken Farm Name Role Phone Unknown, Provider Primary Care Provider [phone] Pam Vazquez FOREIGN EXCHANGE STUDENT COORDINATOR Primary Care Provider [phone] Practice, [facility] Primary Care Pro vider Jeniffer Devries FOREIGN EXCHANGE STUDENT COORDINATOR Primary Care Provider + [phone] Encounter Details Date Type Department Care Team (Late st Contact Info) Description 06/22/2020 Lab Requisition [facility] Pathology & Laboratory Medicine - [facility] [address] [place] [address] Outr Resulting Lab, Provider Social History Tobacco [...] Procedure Name Priority Date/Time Associated Diagnosis Comments DO NOT ORDER STANDALONE - BROAD COVID TEST Today 06/22/2020 9:21 EST COVID-19 TESTING Routine 06/22/2020 9:21 EST documented in this encounter Results * DO NOT ORDER STANDALONE - BROAD COVID TEST (06/22/2020 9:21 EST) COVID-19 rt-PCR Result NEGATIVE Negative 06/24/2020 10:46 EST [facility] Comment: 2019-novel Coronavirus (2019-nCoV) not detected by the qRT-PCR assay. Consider testing for other respiratory viruses or re-collecting for 2019-nCoV testing. Note: Optimum timing for peak viral levels during infections caused by 2019-nCoV have not been determined. Collection of multiple specimens from the same patient may be necessary to detect the virus. Limitations Positive results are indicative of active infection with SARS-CoV-2 but do not rule out bacterial infection or co-infection with other viruses. The agent detected may not be the definite cause of disease. In addition, detection of viral RNA may not indicate the presence of infectious virus or that SARS-CoV-2 is the causative agent for clinical symptoms. Negative results do not preclude SARS-CoV-2 infection and should not be used as the sole basis for patient management decisions. Negative results must be combined with clinical observations, patient history, and epidemiological information. False negative results may also occur if amplification inhibitors are present in the specimen or if inadequate numbers of organisms are present in the specimen. Optimum specimen types and timing for peak viral levels during infections caused by SARS-CoV-2 have not been fully determined. Collection of multiple specimens (types and time points) from the same patient may be necessary to detect the virus. The test was validated for use with upper respiratory specimens obtained via nasopharyngeal or oropharyngeal swabs in VTM, UTM, M4, M5, M6, saline, and MTM media. The performance of this test has not been established for other specimens. Specimens collected using other FDA recommended Specimen Collection Materials listed in the FDA COVID-19 [employer] communication (October 16, 2019) are processed with the caveat that they were not all validated for use with this test and the result must be interpreted in this context. Furthermore, a false negative results may occur if a specimen is improperly collected, transported or handled. If the virus mutates in the RT-PCR target region, SARS-CoV-2 may not be detected or may be detected less predictably. Inhibitors or other types of interference may produce a false negative result. An interference study evaluating the effect of common cold medications was not performed. This test is not FDA-cleared but its performance characteristics were established by our CLIA-certified, CAP-accredited, high complexity laboratory in accordance with CLIA regulations, College of [place] [employer] (CAP) guidelines (Oct 09, 2019), and FDA guidance (Sep 20, 2019). This test is only for use under the Food and Drug Administration's Emergency Use Authorization. Swab ENTIRE NASOPHARYNX / Unknown 06/22/2020 9:21 EST 06/22/2020 16:36 EST Provider Outr Resulting Lab MICROBIOLOGY - GENERAL ORDERABLES [place], [place] * COVID-19 TESTING (06/22/2020 9:21 EST) Pathologist [facility] COVID-19 rt-PCR Result NEGATIVE Negative 06/24/2020 10:46 EST [facility] Comment: 2019-novel Coronavirus (2019-nCoV) not detected by the qRT-PCR assay. Consider testing for other respiratory viruses or re-collecting for 2019-nCoV testing. Note: Optimum timing for peak viral levels during infections caused by 2019-nCoV have not been determined. Collection of multiple specimens from the same patient may be necessary to detect the virus. Limitations Positive results are indicative of active infection with SARS-CoV-2 but do not rule out bacterial infection or co-infection with other viruses. The agent detected may not be the definite cause of disease. In addition, detection of viral RNA may not indicate the presence of infectious virus or that SARS-CoV-2 is the causative agent for clinical symptoms. Negative results do not preclude SARS-CoV-2 infection and should not be used as the sole basis for patient management decisions. Negative results must be combined with clinical observations, patient history, and epidemiological information. False negative results may also occur if amplification inhibitors are present in the specimen or if inadequate numbers of organisms are present in the specimen. Optimum specimen types and timing for peak viral levels during infections caused by SARS-CoV-2 have not been fully determined. Collection of multiple specimens (types and time points) from the same patient may be necessary to detect the virus. The test was validated for use with upper respiratory specimens obtained via nasopharyngeal or oropharyngeal swabs in VTM, UTM, M4, M5, M6, saline, and MTM media. The performance of this test has not been established for other specimens. Specimens collected using other FDA recommended Specimen Collection Materials listed in the FDA COVID-19 [employer] communication (October 16, 2019) are processed with the caveat that they were not all validated for use with this test and the result must be interpreted in this context. Furthermore, a false negative results may occur if a specimen is improperly collected, transported or handled. If the virus mutates in the RT-PCR target region, SARS-CoV-2 may not be detected or may be detected less predictably. Inhibitors or other types of interference may produce a false negative result. An interference study evaluating the effect of common cold medications was not performed. This test is not FDA-cleared but its performance characteristics were established by our CLIA-certified, CAP-accredited, high complexity laboratory in accordance with CLIA regulations, College of [place] [employer] (CAP) guidelines (Oct 09, 2019), and FDA guidance (Sep 20, 2019). This test is only for use under the Food and Drug Administration's Emergency Use Authorization. Performing Lab [facility] 06/24/2020 10:46 EST [facility] Swab 06/22/2020 9:21 EST 06/22/2020 16:36 EST Provider Outr Resulting Lab MICROBIOLOGY - GENERAL ORDERABLES [facility] [address] [place], [place] [id number] [place] [address] LABORATORY [place] documented in this encounter Visit Diagnoses Not on filedocumented in this encounter Care Teams Helper Chicken Farm Relationship Specialty Start Date End Date Unknown, Provider, PCP - General 06/10/19 06/24/20 Pam Vazquez FOREIGN EXCHANGE STUDENT COORDINATOR [address] [place] [address] [address] [place] [id number] PCP - General 06/25/20 06/06/21 [facility], [address] [id number] PCP - General 06/07/21 03/20/23 Jeniffer Devries NP [address] [place] [phone] PCP - General Family Medicine - Primary Care 03/21/23 documented as of this encounter
--- OUTSIDE RECORDS SUMMARY | 2024-05-15 20:35 | XMS_ITS | Encounter Summary ---
Author Organization [facility] Address [address] [place] [address] Care Team Providers Care Ordnance Corps Officer Name Role Phone [facility] Primary Care Pro vider Reason for Visit * Reason Onset Date Comments Establish Care 06/07/2021 Encounter Details Date Type Department Care Team (Late st Contact Info) Description 06/07/2021 [facility]phone [facility] [address] [facility] [place], [place] [id number] Practice, [facility] [address] [place], [place] [id number] Establish Care Social History Tobacco Use Types Packs/Day Years Used Date Smoking Tobacco: Never Assessed Sex and Gender Information Value Date Recorded Sex Assigned at Not on file Gender Identity Male 03/21/2023 10:56 EDT Sexual Orientation Not on file documented as of this encounter Miscellaneous Notes * Telephone Encounter - Anita March - 06/08/2021 0800 EST Noted * Telephone Encounter - Alexander Sotomayor - 06/07/2021 1411 EST Pt would like to reestablish care. Was a pt in 2016 and moved back to the area. No transportation/ language barriers Primary Care Currently [place], [place] Acute Issues: none New Pt Paperwork was completed at office documented in this encounter Plan of Treatment Not on file documented as of this encounter Visit Diagnoses Not on filedocumented in this encounter Care Teams Ordnance Corps Officer Relationship Specialty Start Date End Date Practice, [address] [place] [address] PCP - General 06/07/21 03/20/23 documented as of this encounter
--- OUTSIDE RECORDS SUMMARY | 2024-05-15 20:35 | XMS_ITS | Encounter Summary ---
Author Organization [facility] Address [address] [place] [address] Care Team Providers Care Filter Tank Tender Helper Head Name Role Phone Practice, [facility] Primary Care Pro vider Reason for Visit * Reason Comments Medication Management Encounter Details Date Type Department Care Team (Late st Contact Info) Description 09/14/2021 14:45 EST Telemedicine [facility] - [facility] [address] [place] [address] Jeniffer Devries NP [address] [place] [phone] Depression, unspecified depression type (Primary Dx); Gastroesophageal reflux disease, unspecified whether esophagitis present Social History Tobacco Use Types Packs/Day Years Used Date Smoking Tobacco: Never Assessed PHQ-2 Answer Date Recorded PHQ-2 SUBTOTAL 6 08/26/2021 Sex and Gender Information Value Date Recorded Sex Assigned at Not on file Gender Identity Male 03/21/2023 10:56 EDT Sexual Orientation Not on file documented as of this encounter Ordered Prescriptions Prescription Sig Dispensed Refills Start Date End Da te sertraline (ZOLOFT) 50 mg tabletIndications:Depress ion, unspecified depression type Take 1 Tablet by mouth daily for 30 days. 30 Tablet 3 09/14/2021 10/14/2021 documented in this encounter Progress Notes * Jeniffer Nam NP - 09/14/2021 0132 EST [facility] Telehealth Video Visit Today's visit was provided through telemedicine video conferencing on Zoom: The location of the patient: Home The location of the provider: Home office Verbal consent: The concept of ???Telemedicine?? has been described to the patient. Patient has been informed of the anticipated benefits and possible risks. Patient understands the information provided regarding telemedicine, has had the opportunity to ask questions about this information, and all questions havebeen answered to patient???s satisfaction. Patient consents for the use of telemedicine in his/her medical care and authorizes the transmission of any relevant medical information to providers and their staff involved in patient???s medical or mental health care. Verbal consent obtained by myself or auxiliary staff: Yes. CHIEF COMPLAINT: Chief Complaint Patient presents with ??? Medication Management HPI: Mike Fernandez, a 26 y.o. male who presents today for telehealth visit for f/u depression and GERD/ Chronic nausea. Reviewed HPI, PMH, and current treatment plan with Conor. Conor reports improvement of mood since starting sertraline. He has been taking 25 mg as prescribed. He denies associated side effects. He reports that he is sleeping through the night. He does endorse continued intermittent anxiety. Conor has continued GI symptoms. From review of chart it seems his GERD and nausea became significant in 2019. He notes triggered after drinking a coffee and eating cookies. He has since experienced frequent and severe nausea which often causes vomiting. He states the nausea tends to be worse at night time. He has decreased appetite due to constant nausea. He denies vomiting blood. He denies diarrhea. He reports frequent constipation. He denies blood in stool. Conor previously followed with [facility]. He has tried and failed omeprazole as well as pantoprazole. Various diets have been recommended but have not seemed to improve symptoms. Zofran does seem to manage nausea. Per notes Conor had EGD and h pylori testing done in 2020. Results are not available for my review. He was lost to follow up during the pandemic. Conor would like to establish somewhere more locally. Conor denies chest pain, dizziness, or shortness of breath. Conor denies abdominal pain. ROS: I've done a Review of Systems and the pertinent positives are in the HPI. Patient Active Problem List Diagnosis ??? Abnormal weight loss ??? Acne ??? Attention deficit hyperactivity disorder (ADHD) ??? Constipation, unspecified ??? Depression with anxiety ??? GERD (gastroesophageal reflux disease) ??? Heartburn ??? Lower abdominal pain, unspecified ??? Nausea ??? Right upper quadrant pain Current Outpatient Medications on File Prior to Visit Medication Sig Dispense Refill ??? ondansetron (ZOFRAN) 4 mg tablet Take 1 Tablet by mouth every 8 hours as needed for up to 30 days for Nausea. 30 Tablet 1 No current facility-administered medications on file prior to visit. Not on File I have reviewed patient's tobacco history: reports that he has never smoked. He has never used smokeless tobacco. I have reviewed current problem list and current medications. PHYSICAL EXAMINATION: Objective: Home Vitals: There were no vitals taken for this visit. Pertinent exam findings: GEN: NAD, pleasant, well appearing, appropriately dressed. RESP: Breathing easily, normal chest expansion. PSYCH: Alert and oriented x 3. Speech regular rate and rhythm without latency or pressure.Thought processes logical, linear and goal directed. Thought content without hallucinations, and suicidal or homicidal ideation. Good insight and judgement. Intact memory. IMPRESSION/PLAN: 1. Depression, unspecified depression type sertraline (ZOLOFT) 50 mg tablet 2. Gastroesophageal reflux disease, unspecified whether esophagitis present 1. Depression, unspecified depression type Continues to take medication as prescribed. Improvement in mood. Continues with some anxiety. He denies associated side effects. Will increase sertraline from 25 mg once daily to 50 mg once daily. Reminded to complete outstanding labs F/u 1 month, sooner if needed. - sertraline (ZOLOFT) 50 mg tablet; Take 1 Tablet by mouth daily for 30 days. Dispense: 30 Tablet; Refill: 3 2. Gastroesophageal reflux disease, unspecified whether esophagitis present Continues with GI symptoms. Failed omeprazole and pantoprazole. Previously following with GI at [facility]. Was lost to f/u due to the pandemic. He would like to establish again with GI more locally. Will send referral for chronic nausea. A total of 20 minutes was spent on this encounter on the day of this encounter. Jeniffer Nam NP 09/16/2021 13:36 documented in this encounter Plan of Treatment Not on file documented as of this encounter Visit Diagnoses Diagnosis Depression, unspecified depression type- Primary Gastroesophageal reflux disease, unspecified whether esophagitis present documented in this encounter Discontinued Medications Medication Sig Discontinue Reason Start Date End Da te sertraline (ZOLOFT) 25 mg tabletIndications:Depress ion, unspecified depression type Take 1 Tablet by mouth daily for 30 days. 08/26/2021 09/14/2021 documented as of this encounter Care Teams Filter Tank Tender Helper Head Relationship Specialty Start Date End Date [facility], [address] [place] [address] PCP - General 06/07/21 03/20/23 documented as of this encounter
--- OUTSIDE RECORDS SUMMARY | 2024-05-15 20:35 | XMS_ITS | Encounter Summary ---
Author Organization [facility] Address [address] [place] [address] Care Team Providers Care Java Engineer Name Role Phone Practice, [facility] Primary Care Pro vider Encounter Details Date Type Department Care Team (Latest Contact Info) Description 07/23/2021 Travel Social History Tobacco Use Types Packs/Day Years Used Date Smoking Tobacco: Never Assessed Sex and Gender Information Value Date Recorded Sex Assigned at Not on file Gender Identity Male 03/21/2023 10:56 EDT Sexual Orientation Not on file COVID-19 Exposure Response Date Recorded In the last month, have you been in contact with someone who was confirmed or suspected to have Coronavirus / COVID-19? No / Unsure 07/23/2021 19:56 EST documented as of this encounter Plan of Treatment Not on file documented as of this encounter Visit Diagnoses Not on filedocumented in this encounter Care Teams Java Engineer Relationship Specialty Start Date End Date [facility], [address] [place], [place] [phone] PCP - General 06/07/21 03/20/23 documented as of this encounter
--- OUTSIDE RECORDS SUMMARY | 2024-05-15 20:35 | XMS_ITS | Encounter Summary ---
Author Organization [facility] Address [address] [place] [address] Care Team Providers Care Touch Up Painter Name Role Phone Practice, [facility] Primary Care Pro vider Reason for Visit * Reason Onset Date Comments Follow-up 08/26/2021 Encounter Details Date Type Department Care Team (Late st Contact Info) Description 08/26/2021 Telephone [facility] - [facility] [address] [place] [address] Jeniffer Devries, [place] [address] [place] [phone] Follow-up Social History Tobacco Use Types Packs/Day Years Used Date Smoking Tobacco: Never Assessed PHQ-2 Answer Date Recorded PHQ-2 SUBTOTAL 6 08/26/2021 Sex and Gender Information Value Date Recorded Sex Assigned at Not on file Gender Identity Male 03/21/2023 10:56 EDT Sexual Orientation Not on file documented as of this encounter Miscellaneous Notes * Telephone Encounter - Janelle Chambers - 09/02/2021 1550 EST Attempted to contact, LMTCB. Letter sent * Telephone Encounter - Darlyn Renteria - 08/29/2021 1643 EST [id number]. No identifier on VM, left generic message. * Telephone Encounter - Jeniffer Nam NP - 08/26/2021 4747 EST Please schedule in office visit in the next 1-2 weeks f/ depression. Ok to call and schedule Sunday. Patient aware end of day will receive scheduling call next week. Thanks documented in this encounter Plan of Treatment Not on file documented as of this encounter Visit Diagnoses Not on filedocumented in this encounter Care Teams Touch Up Painter Relationship Specialty Start Date End Date Practice, [address] [place] [address] PCP - General 06/07/21 03/20/23 documented as of this encounter
--- OUTSIDE RECORDS SUMMARY | 2024-05-15 20:35 | XMS_ITS | Encounter Summary ---
Author Organization [facility] Address [address] [place] [address] Care Team Providers Care Machine Helper Name Role Phone Practice, [facility] Care Pro vider Reason for Visit * Reason Comments Depression Encounter Details Date Type Department Care Team (Late st Contact Info) Description 08/26/2021 16:00 EST Telemedicine [facility] [address] [place], [place] [id number] Jeniffer Devries, AUTO MECHANIC SUPERVISOR [address] [place] [address] Depression, unspecified depression type (Primary Dx); Gastroesophageal reflux disease, unspecified whether esophagitis present; Insomnia, unspecified type Social History Tobacco Use Types Packs/Day Years Used Date Smoking Tobacco: Never Assessed PHQ-2 Answer Date Recorded PHQ-2 SUBTOTAL 6 08/26/2021 Sex and Gender Information Value Date Recorded Sex Assigned at Not on file Gender Identity Male 03/21/2023 10:56 EDT Sexual Orientation Not on file documented as of this encounter Ordered Prescriptions Prescription Sig Dispensed Refills Start Date End Da te ondansetron (ZOFRAN) 4 mg tabletIndications:Gastroe sophageal reflux disease, unspecified whether esophagitis present Take 1 Tablet by mouth every 8 hours as needed for up to 30 days for Nausea. 30 Tablet 1 08/26/2021 09/25/2021 sertraline (ZOLOFT) 25 mg tabletIndications:Depress ion, unspecified depression type Take 1 Tablet by mouth daily for 30 days. 30 Tablet 2 08/26/2021 09/14/2021 documented in this encounter Progress Notes * Jeniffer Nam, AUTO MECHANIC SUPERVISOR - 08/26/2021 1600 EST [facility] [place] Today's visit was provided via telephone audio only. The location of the patient: Home The location of the provider: Office Verbal consent: The concept of ???Telemedicine?? has [...] consent obtained by myself or auxiliary staff: yes. I have determined that an audio-only visit is appropriate due to: Internet access or other technical issue Patient initiated phone contact with the office: yes. Patient is an established patient (parent, guardian) yes. E/M provided within previous 7 days for same medical assessment: no Anticipate E/M service within 24hrs or next available urgent appointment no. This visit was conducted by telephone. A total of 20 minutes was spent on this encounter on the dayof this encounter. CHIEF COMPLAINT: Chief Complaint Patient presents with ??? Depression HPI: Mike Fernandez, a 26 y.o. male who presents today to discuss depression. He reports historyof depression for which he follows with a therapist weekly. He reports he fund out this week that his younger brother was murdered which has exacerbated his depression. He denies SI or HI. He plans to continue with his therapist weekly. He notes significant trouble with sleep and wonders if he can be prescribed something to help with that. Mike also requests refill of zofran. He states he has history of severe GERD and intermittent nausea associated with it. He was previously prescribed zofran to use as needed and would like to be refilled again. Mike otherwise reports being generally healthy. He denies chest pains, dizziness, or shortness of breath. He denies known heart problems. ROS: I've done a Review of Systems and the pertinent positives are in the HPI. There is no problem list on file for this patient. No current outpatient medications on file prior to visit. No current facility-administered medications on file prior to visit. No Known Allergies No past medical history on file. Social History Tobacco Use ??? Smoking status: Not on file Substance Use Topics ??? Alcohol use: Not on file ??? Drug use: Not on file PHYSICAL EXAMINATION: Examination: Home Vitals: There were no vitals taken for this visit. Pertinent exam findings: mood and affect appropriate IMPRESSION/PLAN: 1. Depression, unspecified depression type sertraline (ZOLOFT) 25 mg tablet COMPREHENSIVE METABOLIC PANEL (CMP) 2. Gastroesophageal reflux disease, unspecified whether esophagitis present ondansetron (ZOFRAN) 4 mg tablet 3. Insomnia, unspecified type 1. Depression, unspecified depression type PHQ-9 score of 24. Reviewed past medical history with patient. He reports being on depression medications in the past. He is unsure what he was prescribed. He denies known side effect or allergic reaction. Mike denies SI or HI. He is established with his therapist seeing her once weekly. Plan to continue once weekly at this time. Given situation and PHQ-9 score Mike would likely benefit from SSRI. Will start sertraline. Reviewed medication profile as well as most common and concerning side effects. Will order labs to be checked in 1 week to monitor sodium level. Will f/u 1 week in office to re-evaluated. Mike may call sooner with any questions or concerns. 2. Gastroesophageal reflux disease, unspecified whether esophagitis present History of GERD. At times this has caused significant nausea. Has previously been prescribed zofranwhen extreme nausea occurs. Requesting refill. He does not currently take A PPI. Using OTC medication when needed. Reviewed medication profile as well as most common and concerning side effects. Willrefill for now and further discuss at upcomming appointment. He may also benefit from PPI. 3. Insomnia, unspecified type Ongoing insomnia. Discussed sleep hygiene. Discussed hydroxyzine. Reviewed medication and most common and concerning side effects. Discussed risks of interactions with starting sertraline and hydroxyzine together. Decision to discuss at next office visit and likely add med at that time. Tiesha agreeable to plan. He will f/u sooner if needed. This note was prepared using voice recognition software and the EMR. There may be inadvertent errors and omissions. Jeniffer Nam NP 08/26/2021 16:51 documented in this encounter Plan of Treatment Not on file documented as of this encounter Visit Diagnoses Diagnosis Depression, unspecified depression type- Primary Gastroesophageal reflux disease, unspecified whether esophagitis present Insomnia, unspecified type documented in this encounter Care Teams Machine Helper Relationship Specialty Start Date End Date Practice, [address] [place] [address] PCP - General 06/07/21 03/20/23 documented as of this encounter
--- OUTSIDE RECORDS SUMMARY | 2024-05-15 20:35 | XMS_ITS | Referral Summary ---
Author Organization [facility] Address [address] [place] [address] Care Team Providers Care Hole Filler Name Role Phone Jeniffer Devries WEDDING DECORATOR Primary Care Provider [phone] Medications No known medications Active Problems Patient [...] Varicella (Chickenpox) vacci ne (VARIVAX) SQ 09/15/2008,02/05/1997 Social History Tobacco Use Types Packs/Day Years Used Date Smoking Tobacco: Never Smokeless Tobacco: Never Alcohol Use Standard Drinks/Week Comments Never 0 (1 standard drink = 0.6 oz pur e alcohol) PHQ-2 Answer Date Recorded PHQ-2 SUBTOTAL 6 08/26/2021 Sex and Gender Information Value Date Recorded Sex Assigned at Not on file Gender Identity Male 03/21/2023 10:56 EDT Sexual Orientation Not on file Last Filed Vital Signs Vital Sign Reading Time Taken Comments Blood Pressure 128/64 07/23/20212029 EST Pulse 68 07/23/20211955 EST Temperature 37.2 ??C (98.9 ??F) 07/23/20211955 EST Respiratory Rate 18 07/23/20211955 EST Oxygen Saturation 97% 07/23/20212029 EST Inhaled Oxygen Concentration - - Weight - - Height - - Body Mass Index - - Plan of Treatment Not on file Care Teams Hole Filler Relationship Specialty Start Date End Date Jeniffer Devries NP [address] [place] [phone] PCP - General Family Medicine - Primary Care 03/21/23
--- OUTSIDE RECORDS SUMMARY | 2024-05-15 20:35 | XMS_ITS | Encounter Summary ---
Author Organization [facility] Address [address] [place] [address] Care Team Providers Care Quality Assurance Test Program Manager Name Role Phone Nirali Yonug MD Primary Care Provider [phone] Reason for Visit * Reason Onset Date Comments Appointment Related 02/19/2013 Encounter Details Date Type Department Care Team (Late st Contact Info) Description 02/19/2013 Telephone [facility] Audiology - [facility] [address] [place], [place] [address] Nirali Young MD [address] [address] Appointment Related Social History Tobacco Use Types Packs/Day Years Used Date Smoking Tobacco: Never Assessed Sex and Gender Information Value Date Recorded Sex Assigned at Not on file Gender Identity Male 03/21/2023 10:56 EDT Sexual Orientation Not on file documented as of this encounter Miscellaneous Notes * Telephone Encounter - Gianna Chavez - 02/19/2013 1004 EDT Phoned patient - 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 documented in this encounter Plan of Treatment Not on file documented as of this encounter Visit Diagnoses Not on filedocumented in this encounter Care Teams Quality Assurance Test Program Manager Relationship Specialty Start Date End Date Nirali Young MD [id number] [address] PCP - General 02/19/13 07/21/15 documented as of this encounter
--- OUTSIDE RECORDS SUMMARY | 2024-05-15 20:35 | XMS_ITS | Encounter Summary ---
Author Organization [facility] Address [address] [place] [address] Care Team Providers Care Machinist Helper Marine Name Role Phone Practice, [facility] Primary Care Pro vider Jeniffer Devries LOCKSTITCH FRONT EDGE TAPE SEWER Primary Care Provider [phone] Reason for Visit * Reason Onset Date Comments Appointment Related 02/15/2022 Tried to con tact pt. No valid phone number. Tried reaching the spouse the phone number was unable to be reached at this time Encounter Details Date Type Department Care Team (Late st Contact Info) Description 02/15/2022 Telephone [facility] Gastroenterology - [facility] [address] [place] [address] Rick Bauer MD [address] [facility], [address] [place] [address] Appointment Related (Tried to contact pt. No valid phone number. Tried reaching the spouse the phone number was unable to be reached at this time) Social History Tobacco Use Types Packs/Day Years [...] on filedocumented in this encounter Care Teams Machinist Helper Marine Relationship Specialty Start Date End Date Practice, [address] [address] PCP - General 06/07/21 03/20/23 Jeniffer Devries NP [address] [place] [phone] PCP - General Family Medicine - Primary Care 03/21/23 documented as of this encounter
--- OUTSIDE RECORDS SUMMARY | 2024-05-15 20:35 | XMS_ITS | Encounter Summary ---
Author Organization [facility] Address [address] [place] [address] Care Team Providers Care Systems Project Manager Name Role Phone Nirali Young MD Primary Care Provider [phone] Edi Duarte MD Primary Care Provider Encounter Details Date Type Department Care Team (Late st Contact Info) Description 02/08/[address] [facility] Radiology Results [address] [place] [address] Randi Mcbride, PATTERN GRADER CUTTER [address] [place] [address] Social History Tobacco Use Types Packs/Day Years Used Date Smoking Tobacco: Never Assessed Sex and Gender Information Value Date Recorded Sex Assigned at Not on file Gender Identity Male 03/21/2023 10:56 EDT Sexual Orientation Not on file documented as of this encounter Plan of Treatment Not on file documented as of this encounter Procedures Procedure Name Priority Date/Time Associated Diagnosis Comments XR CHEST 2 VIEWS 02/08/2015 19:1 9 EDT documented in this encounter Results * XR CHEST 2 VIEWS (02/08/2015 19:19 EDT) Anatomical Region Laterality Modality Other 02/08/2015 19:1 9 EDT Narrative 02/08/2015 19:19 EDT ? EXAM: RADIOLOGY EXPRESS CARE/EXP CARE XR ??EX. D/ (1902) ? CLINICAL INFORMATION: ? INTERMITTENT CHEST PAIN ? EXAM: ? XR Chest, 2 Views. ? CLINICAL HISTORY: ? 20 years old, male; Intermitten chest pain. ? TECHNIQUE: ? Frontal and lateral views of the chest. ? COMPARISON: ? No relevant prior studies available. ? FINDINGS: ? Lungs: ??Unremarkable. ??No consolidation. ? Pleural spaces: ??Unremarkable. ??No pneumothorax. ? Heart: ??Unremarkable. ??No cardiomegaly. ? Mediastinum: ??Unremarkable. ? Bones/joints: ??Unremarkable. ? IMPRESSION: ? Normal chest. ? REPORT SIGNED IN OTHER VENDOR SYSTEM 02/08/2015 ?Reported By: Patricia Mendoza MD ? CC: ? Transcribed Date/Time: 02/08/2015 (1919) ? Time Study Technician: ? Printed Date/Time: 12/30/2018 (3046) ? PAGE 1 ? Signed Report ? Procedure Note Patricia Mendoza - 05/27/2019 EXAM: RADIOLOGY EXPRESS CARE/EXP CARE XR EX. D/ (1902) CLINICAL INFORMATION: INTERMITTENT CHEST PAIN EXAM: XR Chest, 2 Views. CLINICAL HISTORY: 20 years old, male; Intermitten chest pain. TECHNIQUE: Frontal and lateral views of the chest. COMPARISON: No relevant prior studies available. FINDINGS: Lungs: Unremarkable. No consolidation. Pleural spaces: Unremarkable. No pneumothorax. Heart: Unremarkable. No cardiomegaly. Mediastinum: Unremarkable. Bones/joints: Unremarkable. IMPRESSION: Normal chest. REPORT SIGNED IN OTHER VENDOR SYSTEM 02/08/2015 Reported By: Patricia Mendoza MD CC: Transcribed Date/Time: 02/08/2015 (1919) Time Study Technician: Printed Date/Time: 12/30/2018 (4831) PAGE 1 Signed Report Randi Mcbride PATTERN GRADER CUTTER IMG DIAGNOSTIC IMAGI NG ORDERABLES documented in this encounter Visit Diagnoses Not on filedocumented in this encounter Care Teams Systems Project Manager Relationship Specialty Start Date End Date Nirali Young MD [address] [address] PCP - General 02/19/13 07/21/15 Edi Duarte MD [address] [place] [phone] PCP - General 07/22/15 06/09/19 documented as of this encounter
--- OUTSIDE RECORDS SUMMARY | 2024-05-15 20:35 | XMS_ITS | Encounter Summary ---
Author Organization [facility] Address [address] [place] [address] Care Team Providers Care Joint Setter Name Role Phone Pam Vazquez ASSOCIATE PROFESSOR OF ENGLISH Primary Care Provider Dat, [facility] Primary Care Pro vider Jeniffer Devries ASSOCIATE PROFESSOR OF ENGLISH Primary Care Provider [phone] Encounter Details Date Type Department Care Team (Late st Contact Info) Description 06/26/2020 Lab Requisition [facility] Pathology & Laboratory Medicine - [facility] [address] [place] [address] Janelle Singh, DO [address] [place], [place] [phone] Nausea Social History Tobacco Use Types Packs/Day Years Used Date Smoking Tobacco: Never Assessed Sex and Gender Information Value Date Recorded Sex Assigned at Not on file Gender Identity Male 03/21/2023 10:56 EDT Sexual Orientation Not on file documented as of this encounter Plan of Treatment Not on file documented as of this encounter Procedures Procedure Name Priority Date/Time Associated Diagnosis Comments SURGICAL PATHOLOGY Today 06/25/2020 13 :50 EST Nausea documented in this encounter Results * SURGICAL PATHOLOGY (06/25/2020 13:50 EST) Final Diagnosis A. DUODENUM, BULB, BIOPSY: - Duodenal mucosa with no specific pathologic features. B. STOMACH, ANTRUM, BIOPSY: - Gastric antral mucosa with mild reactive (chemical) gastropathy. C. STOMACH, GREATER CURVE, BIOPSY: - Gastric body mucosa with no specific pathologic features. D. GASTROINTESTINAL JUNCTION, BIOPSY: - Squamous mucosa with reflux esophagitis. E. ESOPHAGUS, DISTAL, BIOPSY: - Squamous mucosa with mild reactive changes. F. DUODENUM, PROXIMAL, BIOPSY: - Duodenal mucosa with no specific pathologic features. 06/29/2020 17:33 [facility] Attestation By the signature below, the attending physician certifies that they have 1) personally conducted a gross and/or microscopic examination of the described specimen(s), and/or personally interpreted the results of laboratory testing of the described specimen(s), and 2) personally rendered or confirmed the above diagnosis. 06/29/2020 17:33 [facility] at 1733 Clinical History Nausea 06/29/2020 17:33 [facility] Gross Description A. Received in formalin labelled with proper patient identification (initials D, C) and duodenal bulb is a single fragment of duval soft tissue (0.5 x 0.2 x 0.2 cm). The specimen is entirely submitted in A1. B. Received in formalin labelled with proper patient identification (initials D, C) and antrum is a single fragment of duval soft tissue (0.3 x 0.3 x 0.2 cm). The specimen is entirely submitted in B1. C. Received in formalin labelled with proper patient identification (initials D, C) and greater curve is a single fragment of duval soft tissue (0.3 x 0.3 x 0.2 cm). The specimen is entirely submitted in C1. D. Received in formalin labelled with proper patient identification (initials D, C) and GE junction is a single fragment of frey-white soft tissue (0.3 x 0.2 x 0.2 cm). The specimen is entirely submitted in D1. E. Received in formalin labelled with proper patient identification (initials D, C) and distal esophagus is a single fragment of frey-white soft tissue (0.4 x 0.3 x 0.2 cm). The specimen is entirely submitted in E1. F. Received in formalin labelled with proper patient identification (initials D, C) and proximal duodenum is a single fragment of duval-yellow soft tissue (0.5 x 0.3 x 0.2 cm). The specimen is entirely submitted in F1. GENE COBOS(ASCP) 06/28/2020 8:06 06/29/2020 17:33 EST [facility] Performing Lab [facility] 17:33 EST [facility] Scanned Images 06/29/2020 17:33 EST [facility] Tissue ENTIRE DUODENUM / Unknown 06/25/2020 13:50 EST 06/26/2020 6:09 EST Tissue specimen (specimen) PYLORIC ANTRUM STRUCTURE / Unknown 06/25/2020 13:50 EST 06/26/2020 6:09 EST Tissue specimen (specimen) SPECIMEN FROM STOMACH OBTAINED BY TOTAL GASTRECTOMY / Unknown 06/25/2020 13:50 EST 06/26/2020 6:09 EST Tissue specimen (specimen) CARDIOESOPHAGEAL JUNCTION STRUCTURE / Unknown 06/25/2020 13:50 EST 06/26/2020 6:09 EST Tissue specimen (specimen) ESOPHAGEAL STRUCTURE / Unknown 06/25/2020 13:50 EST 06/26/2020 6:09 EST Tissue specimen (specimen) DUODENAL STRUCTURE / Unknown 06/25/2020 13:50 EST 06/26/2020 6:09 EST Janelle Singh DO PATHOLOGY ORDERABLES Performing Organization Address City/State/[facility] Co de Phone Number [facility] [address] [place] [address] documented in this encounter Visit Diagnoses Diagnosis Nausea Nausea alone documented in this encounter Care Teams Joint Setter Relationship Specialty Start Date End Date Pam Vazquez NP [address] [place] [address] [address] [place] [phone] PCP - General 06/25/20 06/06/21 [facility], [address] [phone] PCP - General 06/07/21 03/20/23 Jeniffer Devries NP [address] [place] [phone] PCP - General Family Medicine - Primary Care 03/21/23 documented as of this encounter
--- OUTSIDE RECORDS SUMMARY | 2024-05-15 20:35 | XMS_ITS | Encounter Summary ---
Author Organization [facility] Address [address] [place] [address] Care Team Providers Care Brace Maker Name Role Phone Dat, [facility] Primary Care Pro vider Jeniffre Devries PROPOSAL REVIEW ANALYST Primary Care Provider Reason for Visit * Reason Onset Date Comments Appointment Related 11/16/2021 Called dianne james to assist with televideo visit, was not able to connect Encounter Details Date Type Department Care Team (Late st Contact Info) Description 11/16/2021 Telephone [facility] Gastroenterology - [facility] [address] [place] [address] Rick Bauer MD [address] [facility], [address] [place] [phone] Appointment Related (Called patient to assist with televideo visit, was not able to connect) Social History Tobacco Use Types Packs/Day Years [...] on filedocumented in this encounter Care Teams Brace Maker Relationship Specialty Start Date End Date Practice, [facility] [address] [place] [address] PCP - General 06/07/21 03/20/23 Jeniffer Devries, CARMENCITA [address] [place] [phone] PCP - General Family Medicine - Primary Care 03/21/23 documented as of this encounter
--- OUTSIDE RECORDS SUMMARY | 2024-05-15 20:35 | XMS_ITS | Encounter Summary ---
Author Organization [facility] Address [address] [place] [address] Care Team Providers Care Pageant Director Name Role Phone Unavailable Primary Care Provider Unavailabl e Encounter Details Date Type Department Care Team (Latest Contact Info) Description 03/05/2000 8:00 EDT - 03/05/2000 11:59 EDT Hospital Encounter [facility] [address] [place] [address] Genny Balderas MD [address] [place] [phone] Jelena Montano, [address] [phone] Discharge Disposition: Auto Discharge Social History Tobacco [...] Procedure Name Priority Date/Time Associated Diagnosis Comments BACTERIAL CULTURE, URINE Routine 03/05/2000 9:46 EDT documented in this encounter Results * BACTERIAL CULTURE, URINE (03/05/2000 9:46 EDT) Specimen Description Urine [facility] Result No growth [facility] Report Status Final [id number] [facility] 03/05/2000 9:46 EDT 03/05/2000 9:46 EDT Genny Balderas MD MICROBIOLOGY - GENER AL ORDERABLES Performing Organization Address City/State/[facility] Co de Phone Number [facility] [address] [place] [address] documented in this encounter Visit Diagnoses Not on filedocumented in this encounter
--- OUTSIDE RECORDS SUMMARY | 2024-05-15 20:35 | XMS_ITS | Encounter Summary ---
Author Organization [facility] Address [address] [place] [address] Care Team Providers Care Steel Rod Buster Name Role Phone Practice, [facility] Primary Care Pro vider Reason for Visit * Reason Comments Rectal Bleeding Rectal Pain Encounter Details Date Type Department Care Team (Late st Contact Info) Description 07/23/2021 19:50 EST - 07/23/2021 21:[address] [facility] Emergency Department [address] [place] [address] Benson Jaime MD Anal fissure (Primary Dx) Discharge Disposition: Home or Self Care Social [...] 19:56 EST documented as of this encounter Last Filed Vital Signs Vital Sign Reading Time Taken Comments Blood Pressure 128/64 07/23/20212029 EST Pulse 68 07/23/20211955 EST Temperature 37.2 ??C (98.9 ??F) 07/23/20211955 EST Respiratory Rate 18 07/23/20211955 EST Oxygen Saturation 97% 07/23/20212029 EST Inhaled Oxygen Concentration - - Weight - - Height - - Body Mass Index - - documented in this encounter Discharge Instructions * Discharge Instructions* Yanira Chandra MD - 07/23/2021 21:01 EST You are seen in the emergency department tonight for rectal pain and bleeding. It looks like you have an anal fissure which is often caused by constipation. You can use the lidocaine jelly as needed to decrease the pain associated with defecation. You should increase your MiraLAX to help soften your stools. You may want to try a clear liquid diet for the next 24 h or so to help really clean out your system. Please follow-up with your primary care provider regarding your fissures and how you can prevent constipation in the future. Please not hesitate to return to the emergency department if you develop worsening pain, increasingbleeding, severe abdominal pain, nausea, vomiting, or any other new or concerning symptoms. documented in this encounter Discharge Disposition Disposition Code Departure Means Destination Home or Self Correction documented in this encounter ED Notes * Yanira Chandra MD - 07/23/20212044 EST Emergency Department Visit Chief Complaint Rectal Bleeding and Rectal Pain Assessment and ED Course Final diagnoses: Anal fissure Patient is a 26-year-old man with a history of 3 days of constipation and severe rectal pain with bleeding. On exam he is generally well-appearing. Differential diagnosis includes internal hemorrhoids, external hemorrhoids, anal fissures, constipation, anemia. On rectal exam, the patient has evidence of a fissure at the 12:00. His anal sphincter is very tight and spasmed and he has severe pain with the rectal exam. There is no evidence of internal or external hemorrhoids. His stool is guaiac positive. Discussed these findings with the patient who voices understanding. He was given lidocaine jelly in the emergency department. Recommend he increase his laxative use until his stools are nice and soft and limit his intake to clear liquids until he feels he has soft stools. Additionally, he can try sitz bath's to decrease the pain. At this time, he is very well-appearing and was felt he was safe and stable for discharge home. Recommend he follow-up with his primary care if his symptoms not improve. Additionally was given strict ED return precautions. Patient voices understanding was agreeable with plan. He was stable and well-appearing at time of discharge. Disposition: Discharged [facility] Mike Fernandez is a 26 y.o. male who presents today with Rectal Bleeding and Rectal Pain Patient is a 26-year-old male who presents today with rectal bleeding and pain. He states that for the past 3 days he has been very constipated and has since developed bright red blood on his stools and severe pain when defecating. He states he has tried MiraLAX and Dulcolax without improvement. Hehas a history of hemorrhoids but states that usually just itchy and do not hurt like this. Denies any lightheadedness, shortness of breath, dizziness Data reviewed this visit: Allergies: No Known Allergies Review of Systems Review of Systems Constitutional: A 10-point review of systems was performed. The patient answered negative to all questions with theexceptions of those explicitly detailed as positives in the HPI. Pertinent negatives are also explicitly stated. - see HPI Physical Exam Vital Signs Temp: 37.2 ??C (98.9 ??F) Temp src: Oral Pulse: 68 Resp: 18 SpO2: 97 % Pulse From Oximetry: 78 BPM BP: 128/64 BP MAP: 90 mm Hg There is no height or weight on file to calculate BMI. A medical screening exam was performed. Physical Exam Vitals and nursing note reviewed. Constitutional: General: He is not in acute distress. Appearance: He is well-developed and well-nourished. He is not diaphoretic. Eyes: General: No scleral icterus. Right eye: No discharge. Left eye: No discharge. Conjunctiva/sclera: Conjunctivae normal. Cardiovascular: Rate and Rhythm: Normal rate. Pulmonary: Effort: Pulmonary effort is normal. No respiratory distress. Breath sounds: No stridor. Abdominal: Palpations: Abdomen is soft. Comments: Anal fissure noted at the 12:00 area. No internal or external hemorrhoids. Positive guaiac stool. Musculoskeletal: General: Normal range of motion. Cervical back: Normal range of motion and neck supple. Skin: General: Skin is warm and dry. Neurological: Mental Status: He is alert and oriented to person, place, and time. Psychiatric: Mood and Affect: Mood and affect normal. Behavior: Behavior normal. Thought Content: Thought content normal. Judgment: Judgment normal. Results EKG orders: None Radiology orders: None Procedures Procedures YANIRA CHANDRA MD 07/23/2021 21:13 Associated attestation - Benson Jaime MD - 07/24/2021 0037 EST I, Benson Jaime MD, performed a history and physical exam of this patient and discussed the case with the resident. I have reviewed the resident note and entered my own edits as necessary. The documentation is consistent with my findings, assessment and plan. I fully participated in the medicaldecision making for this patient. I agree with the resident's findings, assessment and treatment plan. * Tina Manning RN - 07/23/2021 195 EST Reports 3 days of rectal bleeding with horrible pain with defecation. Hx hemorrhoids documented in this encounter Plan of Treatment Not on file documented as of this encounter Visit Diagnoses Diagnosis Anal fissure- Primary documented in this encounter Administered Medications Inactive Administered Medications - up to 3 most recent administrations Medication Order MAR Action Action Date Dose Rate Site lidocaine (XYLOCAINE) 2 % jelly topical, NOW X1, 1 dose, On 07/23/21 at 2100 Given 07/23/2021 21:25 EST documented in this encounter Active and Recently Administered Medications Times are shown in EST. Scheduled Medication Order 07/21/2021 07/22/2021 07/23/2021 lidocaine (XYLOCAINE) 2 % jelly (COMPLETED) topical, NOW X1, 1 dose, On 07/23/21 at 2100 2125 (Given - Provid er: Stephane Gutierrez RN) documented in this encounter Orders Medications Ordered That Shayne ht Not Have Been Administered Count Last Ordered Date First Ordered Date lidocaine (XYLOCAINE) 2 % jelly 1 2 documented in this encounter Care Teams Steel Rod Buster Relationship Specialty Start Date End Date Practice, [address] [address] PCP - General 06/07/21 03/20/23 documented as of this encounter
== END 2024-05-15 19:32 | disposition home or self-care (01) ==
LOC: ER 20:33
PROVIDERS: Emergency Provider Registered Nurse Emergency
DX: R51.9 Headache, unspecified (principal); R11.0 Nausea
CPT/HCPCS: 96361; 96374; 96375; 99284; J1100; J1885; J2405

== ENCOUNTER 2024-08-18 11:11 | Emergency (ER) | payer MEDICAID, SELFPAY ==
[2024-08-18 11:19] VITALS: BP 121/82; PULSE 104; RESP 16; TEMP 36.6; O2SAT 98
--- NOTE | 2024-08-18 11:33 | ED.GENADUL_ITS ---
Discharge Plan Disposition Patient Disposition: Home Condition: Good Discharge Details Clinical Impression: URI (upper respiratory infection), Nausea vomiting and diarrhea Primary Care Provider: Unknown,Unknown ED Provider: Maria De Jesus Bautista Home Meds and New Rx's Prescriptions: New ondansetron 4 mg tablet,disintegrating 4 mg PO Q6H PRN (Reason: nausea and vomiting) Qty: 14 0RF Continued fluoxetine 20 mg capsule 20 mg PO DAILY Qty: 90 4RF Patient Comments: not taking 04/11/23 calcium carbonate [Tums] 200 mg calcium (500 mg) tablet,chewable 200 mg PO BID PRN Patient Comments: not taking 04/11/23 doxycycline hyclate 100 mg capsule 100 mg PO BID Qty: 20 0RF Patient Comments: not taking 04/11/23 polyethylene glycol 3350 [Miralax] 17 gram/dose powder 17 g PO DAILY PRN (Reason: constipation) Qty: 119 0RF Patient Comments: not taking 04/11/23 lansoprazole [Prevacid] 30 mg capsule,delayed release(DR/EC) 30 mg PO DAILY Qty: 30 12RF Patient Comments: not taking 04/11/23 amitriptyline 25 mg tablet 50 mg PO HS Qty: 180 3RF Patient Comments: not taking 04/11/23 ondansetron HCl [Zofran] 4 mg tablet 4 mg PO Q8H PRN (Reason: nausea and vomiting) Qty: 60 0RF Patient Comments: not taking 04/11/23 Discharge Instructions Instructions: Viral Upper Respiratory Infection, Adult (DC), Nausea and Vomiting, Adult ED Additional Instructions: You were negative for covid, flu, RSV. You do have an elevated white count, likely associated with your body fighting an infection. Your electrolytes are normal. Please continue to encourage hydration. You may use Tylenol and ibuprofen as needed for discomfort. This will likely last 1 to 2 weeks as it is likely a virus. Please follow-up with your primary care in 1 to 2 weeks for reevaluation. If you develop difficulty breathing, shortness of breath, increased pain, inability stay hydrated or other new/worsening symptoms to seek care urgently once again. You been prescribed Zofran to help with any recurrent nausea that may have. You were negative for COVID, flu and RSV, please wash your hands frequently to help prevent transmission to others. Stand Alone Forms: Work Release Discharge Data Discharge Date/Time-TO BE ENTERED AT DEPARTURE: 08/18/24 14:09 HPI General Date/Time Provider Initiated Documentation: 08/18/24 11:32 . Limitations to Documentation: no limitations . Information obtained by: patient and RN notes reviewed . History of Present Illness 29 year old M presents to the emergency department with the chief complaint of URI, nausea, vomiting, diarrhea, described as moderate, Patient started experiencing this day(s) and it has been constant. No relieving factors improve symptom(s), No exacerbating factors reported . Patient notes cough, fever/chills, loss of appetite, malaise and nausea/vomiting; denies chest pain, headaches, rash and shortness of breath. Patient did receive the following treatments prior to arrival, none Related Data Home Medications ?Medication ?Instructions ?Recorded ?Confirmed fluoxetine 20 mg capsule 20 mg PO DAILY #90 caps 08/08/19 12/23/20 polyethylene glycol 3350 17 17 g PO DAILY PRN constipation 05/14/20 12/23/20 gram/dose oral powder (Miralax) #119 grams calcium carbonate (Tums) 200 mg PO BID PRN 06/14/20 12/23/20 amitriptyline 25 mg tablet 50 mg (2 x 25 mg) PO HS #180 08/05/20 12/23/20 tab-caps lansoprazole 30 mg capsule,delayed 30 mg PO DAILY #30 caps 08/05/20 12/23/20 release (Prevacid) doxycycline hyclate 100 mg capsule 100 mg PO BID #20 caps 12/23/20 12/23/20 ondansetron HCl 4 mg tablet 4 mg PO Q8H PRN nausea and 02/01/21 (Zofran) vomiting #60 tabs ondansetron 4 mg disintegrating 4 mg PO Q6H PRN nausea and 08/18/24 tablet vomiting #14 tabs Previous Rx's ?Medication ?Instructions ?Recorded fluoxetine 20 mg capsule 20 mg PO DAILY #90 caps 08/08/19 polyethylene glycol 3350 17 17 g PO DAILY PRN constipation 05/14/20 gram/dose oral powder (Miralax) #119 grams amitriptyline 25 mg tablet 50 mg (2 x 25 mg) PO HS #180 08/05/20 tab-caps lansoprazole 30 mg capsule,delayed 30 mg PO DAILY #30 caps 08/05/20 release (Prevacid) doxycycline hyclate 100 mg capsule 100 mg PO BID #20 caps 12/23/20 ondansetron HCl 4 mg tablet 4 mg PO Q8H PRN nausea and 02/01/21 (Zofran) vomiting #60 tabs ondansetron 4 mg disintegrating 4 mg PO Q6H PRN nausea and 08/18/24 tablet vomiting #14 tabs Allergies Allergy/AdvReac Type Severity Reaction Status Date / Time No Known Drug Allergies Allergy Other (See Verified 05/15/24 17:57 Comment) General Stated Complaint: Abd Prob JANNY: 3 Review of Systems Constitutional Constitutional: Reports as per HPI and Denies headache(s) Eyes Eyes: Reports as per HPI, Denies eye discharge and Denies irritation ENT Ears, Nose, Mouth, and Throat: Reports as per HPI and Denies headache(s) Cardiovascular Cardiovascular: Reports as per HPI, Denies chest pain and Denies dyspnea Respiratory Respiratory: Reports as per HPI and Denies dyspnea Gastrointestinal Gastrointestinal: Reports as per HPI Integumentary/Breasts Skin/Breast: Reports as per HPI and Denies rash Neurologic Neurologic: Reports as per HPI and Denies headache(s) Exam Const General: cooperative, comfortable, no acute distress, well developed, well groomed and ill appearing acutely (appears fatigued, dehdyrated) Nutritional Appearance: average body habitus and well nourished Orientation: alert and awake [facility] Head: normal to inspection, normocephalic and atraumatic Ears: hearing grossly normal bilaterally, external ears normal and TM's normal bilaterally General nose exam: external nose normal and nares normal Face and sinus: normal facial exam Mouth: oral mucosae normal, tongue normal, oropharynx normal and moist mucous membranes Teeth and gingiva: dentition normal Throat: posterior oropharynx normal, tonsils normal and uvula midline Eyes General: appearance normal, both eyes and all related structures Neck Neck: normal visual inspection, full ROM, no lymphadenopathy and no meningeal signs Resp Effort & Inspection: normal respiratory effort, able to speak in complete sentences and no respiratory distress Auscultation: clear to auscultation bilaterally, no rales, no rhonchi and no wheezes Cardio Rate: regular rate Rhythm: regular rhythm Heart Sounds: S1 normal and S2 normal GI Inspection: normal to inspection Palpation: soft, no hepatosplenomegaly, no masses, no pulsatile masses, not rigid and nontender Skin General skin exam: no rashes or lesions noted Neuro General: patient alert and patient awake Cognition: normal cognition Speech: speech normal Gait: normal gait Psych Appearance: grossly normal and well kempt Mental Status: mental status grossly normal Speech and Movement: speech and movement normal Course Vital Signs Vital signs: Vital Signs Temperature 36.6 C 08/18/24 11:19 Pulse 104 H 08/18/24 11:19 Respiratory Rate 16 08/18/24 11:19 Blood Pressure 121/82 08/18/24 11:19 Pulse Oximetry 98 08/18/24 11:19 Temperature 36.6 C 08/18/24 11:19 Pulse 104 H 08/18/24 11:19 Respiratory Rate 16 08/18/24 11:19 Blood Pressure 121/82 08/18/24 11:19 Pulse Oximetry 98 08/18/24 11:19 Pain Level 0 08/18/24 11:19 Medical Decision Making Patient is a pleasant 29-year-old male past medical history significant for ADHD, presenting today with chief complaint of 1 week of URI and onset of nausea, vomiting and diarrhea. Patient reports that initially he was having cough, congestion, body aches. Family is ill with similar symptoms. States that yesterday however, he began having diarrhea, nausea and vomiting. Has vomited x 2. Diarrhea x 3. All of this has been nonbloody. Always had some abdominal discomfort associated with the vomiting, he has not had any significa nt abdominal pain. He has not had any fevers or chills. No shortness of breath or difficulty breathing. He has had a cough that initially had bright green sputum, this is since been resolving. Primarily concerned about the GI upset today. On exam, patient appears like he feels unwell but does not appear acutely toxic or unstable. Appears slightly dehydrated. Given the vomiting, diarrhea fol lowing and a URI, will hydrate the patient. Also to baseline labs. Do not see evidence to suggest an acute or surgical abdomen. No evidence to suggest a bacterial pneumonia, particularly as his cough has been improving and lungs are clear. He is afebrile. Will hydrate, obtain labs and reevaluate. Will give antiemetic. Patient feeling improved after IV hydration and antiemetic. Will continue the antiemetic at home. Labs reviewed. Patient does have a notable leukocytosis with a white count of 17 but without any focal findings on exam, more likely stress response from acute illness that is thought to be likely viral in nature. Labs otherwise reassuring. He was negative for flu and COVID. However, family also ill with similar symptoms as noted before. Patient I discussed treatment options, will continue with supportive care. Will prescribe antiemetic for any recurrence of his nausea and vomiting. Able to hydrate. Work note given at patient request. Return precautions were discussed. All his questions and concerns were addressed and he is in agreement with this plan. Encourage follow-up with primary care. This documentation was generated using [employer] system, please disregard any oddities of phrase or misspellings. Quality:SDOH Health Related Social Needs: No Data to Display PFSH All Active Problems (Updated 08/18/24 @ 13:41 by GENE Zhou) Nausea vomiting and diarrhea (Acute) URI (upper respiratory infection) (Acute) Epididymitis (Acute) Nausea (Acute) Nausea (Acute) Insomnia (Acute) Mild obstructive sleep apnea (Acute) sleep study 03/21/19-Dr Zimmer 04/14/19-sleep clinic note: CPAP rx. Gastroesophageal reflux disease (Acute 09/05/16) Depression with anxiety (Acute 09/05/16) Medical History Attention deficit hyperactivity disorder (ADHD) (09/05/16) Surgical History History of esophagogastroduodenoscopy (EGD) (~06/25/20) Family History Mother Depression Father Alcohol abuse Heart disease Depression Paternal Grandfather Testicular cancer Heart disease Sister Depression Maternal Grandfather Heart disease Maternal Grandmother Heart disease Paternal Grandmother Heart disease Social History Smoking/Tobacco Use Status: Never Smoking risk assessment performed?: Yes Alcohol Intake: current Alcohol Intake frequency: a few times a month Alcohol type: beer, wine and hard liquor Drug use: Never Substance use type: does not use Adopted: No Household members: significant other and family Housing: apartment Communication Needs: None Do you need help understanding health information?: Often Pets and animals: No Sexually active: Yes Do you think of yourself as: bisexual Current gender identity: male What is your relationship status?: living with partner How often do you talk on the phone with friends or family?: twice per week How often do you get together with friends or relatives?: twice per week How often do you attend gnosticist or pentecostal services?: 1-3 times per year Do you belong to any clubs or organized social groups?: no Panel score (0-1 are the most socially isolated patients): 2 What type of physical activity do you participate in: other Details: lacrosse and running Duration: 15-30 minutes/day Frequency: 5-6 times per week Melonie/Latter Day: Faith Special melonie needs: No Seatbelt use: always Drive intox or ride w/intox public transit trolley driver: No Do you feel safe at home: Yes Do you feel safe in your relationship?: Yes
[2024-08-18 11:54] LABS: Abs Immature Grans 0.08 10^3/uL (0.0-0.06); Absolute Monocyte Count 1.33 10^3/uL (0.1-0.8); Absolute Neutrophil Count 13.91 10^3/uL (1.2-6.7); Basophils % 0.3 %; Eosinophils % 0.8 %; HCT 46.7 % (40.0-50.0); Immature Grans % 0.5 %; Lymphocytes % 12.5 %; MCH 28.7 pg (27.0-33.0); MCHC 34.3 % (32.0-36.0); MCV 84 fL (80-95); MPV 8.5 fL (8.0-11.0); Monocytes % 7.5 %; Neutrophils % 78.4 %; Platelet Count 363 10^3/uL (130-400); RBC 5.58 10^6/uL (4.36-5.78); RDW 12.7 % (11.8-14.1); WBC 17.74 10^3/uL (4.4-10.8)
[2024-08-18 11:56] LABS: Absolute Basophil Count 0.05 10^3/uL (0.0-0.2); Absolute Eosinophil Count 0.14 10^3/uL (0.0-0.7); Absolute Lymphocyte Count 2.22 10^3/uL (1.2-3.4)
[2024-08-18 12:17] LABS: ALT 37 U/L (16-63); AST 18 U/L (15-37); Alkaline Phosphatase 73 U/L (46-116); BUN 18 mg/dL (7-18); Bilirubin, Total 0.92 mg/dL (0.2-1.0); CREATININE 0.9 mg/dL (0.70-1.30); Chloride 105 mmol/L (98-107); Estimated GFR 119.31 (mL/min/1.73m2); Glucose 97 mg/dL (74-106); Magnesium 1.9 mg/dL (1.8-2.4); Potassium 3.7 mmol/L (3.5-5.1); Sodium 143 mmol/L (136-145); Total Protein 7.6 g/dL (6.4-8.2)
[2024-08-18] MEDS: Lactated Ringers 1,000 ML 1000 ML IV (12:24)
[2024-08-18] MEDS: ACETAMINOPHEN 1,000 MG/100 ML BAG 400 MG IVPB (12:24)
[2024-08-18] MEDS: Ondansetron 4 MG/2 ML VIAL IVP (12:24)
[2024-08-18 13:35] VITALS: TEMP 37.2
== END 2024-08-18 14:09 | disposition home or self-care (01) ==
PROVIDERS: Emergency Provider Physician Assistant
DX: R11.2 Nausea with vomiting, unspecified (principal); R19.7 Diarrhea, unspecified; J06.9 Acute upper respiratory infection, unspecified
CPT/HCPCS: 36415; 80053; 87426; 96361; 96365; 96375; 99285; 83735; 85025; 99284; J0131; J2405

== ENCOUNTER 2025-05-30 14:34 | Emergency (ER) | payer MEDICAID, SELFPAY ==
--- NOTE | 2025-05-30 14:30 | RT.EKG_ITS ---
APPROVED REPORT Exam: Resting ECG Reason for Exam: chest pain Patient Location: E HR:128 bpm ECG Measurements Heart Rate 128 AXIS MT 138 P 48 QRSd 81 QRS 46 QT 285 T -13 QTc 417 Conclusion Sinus tachycardia...rate> 99
[2025-05-30 14:41] VITALS: BP 123/89; PULSE 127; RESP 18; TEMP 38.1; O2SAT 94
--- NOTE | 2025-05-30 15:27 | W.ED.GENAD ---
Discharge Plan Disposition Patient Disposition: Home Condition: Stable Discharge Details Clinical Impression: Costochondritis, Chest pain Primary Care Provider: Unknown,Unknown ED Provider: Graciela Yarbrough Home Meds and New Rx's Prescriptions: Continued fluoxetine 20 mg capsule 20 mg PO DAILY Qty: 90 4RF Patient Comments: not taking 04/11/23 calcium carbonate [Tums] 200 mg calcium (500 mg) tablet,chewable 200 mg PO BID PRN Patient Comments: not taking 04/11/23 polyethylene glycol 3350 [Miralax] 17 gram/dose powder 17 g PO DAILY PRN (Reason: constipation) Qty: 119 0RF Patient Comments: not taking 04/11/23 amitriptyline 25 mg tablet 50 mg PO HS Qty: 180 3RF Patient Comments: not taking 04/11/23 ondansetron HCl [Zofran] 4 mg tablet 4 mg PO Q8H PRN (Reason: nausea and vomiting) Qty: 60 0RF Patient Comments: not taking 04/11/23 ondansetron 4 mg tablet,disintegrating 4 mg PO Q6H PRN (Reason: nausea and vomiting) Qty: 14 0RF Discharge Instructions Instructions: Costochondritis Additional Instructions: No evidence for heart attack, pneumonia, or blood clot in your lungs. I do suspect an inflammation of the connective tissue in between your lungs. Please use the albuterol inhaler 1 or 2 puffs every 4-6 hours as needed for shortness of breath. Please take Tylenol or Ibuprofen with food every 4-6 hours as needed for pain and swelling. Increase oral fluids. Follow up with primary care provider in 3-5 days. Return to ED sooner if any worsening or concerns. Thank you for allowing us to care for you today. Stand Alone Forms: Portal Information Referrals: Primary Care Provider [Outside] - 5 days Referral Note: ER follow-up Adrián Maki [ [facility]FF PHYSICIAN, Medicine] - 1 week Referral Note: ER follow up Call for an appointment Discharge Data Discharge Date/Time-TO BE ENTERED AT DEPARTURE: 05/30/25 17:38 HPI General Mode of arrival: ambulatory. Date/Time Provider Initiated Documentation: 05/30/25 14:44. Limitations to Documentation: no limitations. Information obtained by: patient, RN notes reviewed and old records reviewed. HPI Narrative: 30-year-old male presents to the ER with a chief complaint of chest pain which started last night got worse today around 10 AM. He states that it feels like somebody is squeezing his chest. He does present tachycardic and febrile. Denies any cough, injuries to his chest or any other associated symptoms denies any recent long trips in a car or plane or any injuries or trauma. Pain is worse with deep breathing. He does have clear lung sounds bilaterally on auscultation. Past medical history of ADHD. Denies smoking or any drugs or alcohol. Related Data Home Medications Medication Instructions Recorded Confirmed fluoxetine 20 mg capsule 20 mg PO DAILY #90 caps 08/08/19 05/30/25 polyethylene glycol 3350 17 17 g PO DAILY PRN constipation 05/14/20 05/30/25 gram/dose oral powder (Miralax) #119 grams calcium carbonate (Tums) 200 mg PO BID PRN 06/14/20 05/30/25 amitriptyline 25 mg tablet 50 mg (2 x 25 mg) PO HS #180 08/05/20 05/30/25 tab-caps ondansetron HCl 4 mg tablet 4 mg PO Q8H PRN nausea and 02/01/21 05/30/25 (Zofran) vomiting #60 tabs ondansetron 4 mg disintegrating 4 mg PO Q6H PRN nausea and 08/18/24 05/30/25 tablet vomiting #14 tabs Previous Rx's Medication Instructions Recorded fluoxetine 20 mg capsule 20 mg PO DAILY #90 caps 08/08/19 polyethylene glycol 3350 17 17 g PO DAILY PRN constipation 05/14/20 gram/dose oral powder (Miralax) #119 grams amitriptyline 25 mg tablet 50 mg (2 x 25 mg) PO HS #180 08/05/20 tab-caps ondansetron HCl 4 mg tablet 4 mg PO Q8H PRN nausea and 02/01/21 (Zofran) vomiting #60 tabs ondansetron 4 mg disintegrating 4 mg PO Q6H PRN nausea and 08/18/24 tablet vomiting #14 tabs Allergies Allergy/AdvReac Type Severity Reaction Status Date / Time No Known Drug Allergies Allergy Other (See Verified 05/30/25 14:46 Comment) General Stated Complaint: Chest Pain JANNY: 3 Review of Systems All systems reviewed & are unremarkable except as noted in HPI and below Cardiovascular Cardiovascular: Reports chest pain and Reports dyspnea Respiratory Respiratory: Reports dyspnea Exam Narrative Exam Narrative: Constitutional: Alert and oriented x3. Appears stated age. Normal body habitus. Head: Normocephalic, no trauma. Eyes: Pupils PERRL, Red reflex noted, EOM's intact. Eyelids symmetrical without lesions, discharge, or swelling. ENT: Bilateral TM's WNL, External ear normal to inspection, no mastoid TTP, swelling, or erythema, Nasal turbinates WNL, no nasal discharge. Normal dentition, Posterior pharynx WNL, no exudate. Chest: Sinus tachycardia with a rate of 120 normal S1, S2, distal pulses intact. Resp: Lungs clear to auscultation bilaterally, no wheezes, rales, or rhonchi. Abdomen: Soft, non-distended, Normoactive bowel sounds all 4 quads. Musculoskeletal: Normal gait, Moves all 4 extremities without difficulty. Skin: No suspicious rashes or lesions. Capillary refill less than 2 sec. Neurologic: Cranial nerves II-XII intact. Alert and oriented x 3. Motor: No deficits noted. Sensory: Intact bilaterally all 4 extremities. Hematologic/Lymphatic: No ecchymosis, no lymphadenopathy. Course Vital Signs Vital signs: Vital Signs Temperature 38.1 C H 05/30/25 14:41 Pulse 127 H 05/30/25 14:41 Respiratory Rate 18 05/30/25 14:41 Blood Pressure 123/89 05/30/25 14:41 Pulse Oximetry 94 05/30/25 14:41 Temperature 38.1 C H 05/30/25 14:41 Temperature Source Tympanic 05/30/25 14:41 Pulse 127 H 05/30/25 14:41 Respiratory Rate 18 05/30/25 14:41 Blood Pressure 123/89 05/30/25 14:41 Blood Pressure Position Sitting 05/30/25 14:41 Pulse Oximetry 94 05/30/25 14:41 Oxygen Delivery Method Room Air 05/30/25 14:41 Oxygen Flow Rate 0 05/30/25 14:41 Medical Decision Making 30-year-old male presents to the ER with a chief complaint of chest pain which started last night got worse today around 10 AM. He states that it feels like somebody is squeezing his chest. He does present tachycardic and febrile. Denies any cough, injuries to his chest or any other associated symptoms denies any recent long trips in a car or plane or any injuries or trauma. Pain is worse with deep breathing. He does have clear lung sounds bilaterally on auscultation. Past medical history of ADHD. Denies smoking or any drugs or alcohol. Cardiac workup ordered, Diff Dx includes, CAD, PNA, URI, PE, PNTHX. No leukocytosis, D-dimer slightly elevated at 777, sodium potassium within normal limits initial troponin within normal negative COVID flu and RSV. Workup is largely unremarkable, no evidence of PE on chest CT no pneumonia or dissection he does have some atelectasis in the dependent portion of the lungs. Will give an albuterol inhaler to go to here and ketorolac. He reports that he feels much better on reevaluation. Do suspect possible costochondritis. Patient remained hemodynamically stable and is improved upon discharge. This text was generated using [employer] system, please disregard any oddities of phrase or misspellings. Lab Data Lab results reviewed: Yes I reviewed the patient's lab results. Labs: Laboratory Tests Range/Units 05/30/25 05/30/25 05/30/25 15:20 15:43 16:23 WBC (4.4-10.8) 10^3/uL 10.24 RBC (4.36-5.78) 10^6/uL 5.70 Hgb (13.5-17.5) g/dL 16.0 Hct (40.0-50.0) % 47.4 MCV (80-95) fL 83 MCH (27.0-33.0) pg 28.1 MCHC (32.0-36.0) % 33.8 RDW (11.8-14.1) % 12.8 Plt Count (130-400) 10^3/uL 253 MPV (8.0-11.0) fL 8.6 Immature Gran % % 0.4 Neutrophils % % 77.9 Lymphocytes % % 10.4 Monocytes % % 10.7 Eosinophils % % 0.3 Basophils % % 0.3 Nucleated RBC % (0.0-0.3) % 0.0 Absolute Neutrophils (1.2-6.7) 10^3/uL 7.97 H Absolute Lymphocytes (1.2-3.4) 10^3/uL 1.07 L Absolute Monocytes (0.1-0.8) 10^3/uL 1.10 H Absolute Eosinophils (0.0-0.7) 10^3/uL 0.03 Absolute Basophils (0.0-0.2) 10^3/uL 0.03 D-Dimer (<500) ng/mlFEU 777 H Sodium (136-145) mmol/L 139 Potassium (3.5-5.1) mmol/L 3.7 Chloride (98-107) mmol/L 101 Carbon Dioxide (21.0-32.0) mmol/L 29.4 Anion Gap (3-11) mmol/L 8.6 BUN (7-18) mg/dL 12 Creatinine (0.70-1.30) mg/dL 1.0 Est GFR (CKD-EPI 2020) (mL/min/1.73m2) 104.48 Glucose (74-106) mg/dL 113 H Calcium (8.5-10.1) mg/dL 8.8 Total Bilirubin (0.2-1.0) mg/dL 0.8 AST (15-37) U/L 31 ALT (16-63) U/L 67 H Alkaline Phosphatase (46-116) U/L 74 Troponin I (<or=76) ng/L 5 5 Total Protein (6.4-8.2) g/dL 8.0 Albumin (3.4-5.0) g/dL 4.0 Lipase (<78) U/L 29 COVID-19 Source Nasopharynx SARS-CoV-2 (PCR) (Negative) Negative Influenza Type A (PCR) (Negative) Negative Influenza Type B (PCR) (Negative) Negative RSV (PCR) (Negative) Negative PFSH All Active Problems (Updated 05/30/25 @ 17:15 by Graciela Yarbrough, [place]) Chest pain (Acute) Costochondritis (Acute) Epididymitis (Acute) Nausea (Acute) Nausea (Acute) Insomnia (Acute) Mild obstructive sleep apnea (Acute) sleep study 03/21/19-Dr Zimmer 04/14/19-sleep clinic note: CPAP rx. Gastroesophageal reflux disease (Acute 09/05/16) Depression with anxiety (Acute 09/05/16) Medical History Attention deficit hyperactivity disorder (ADHD) (09/05/16) Surgical History History of esophagogastroduodenoscopy (EGD) (~06/25/20) Family History Mother Depression Father Alcohol abuse Heart disease Depression Paternal Grandfather Testicular cancer Heart disease Sister Depression Maternal Grandfather Heart disease Maternal Grandmother Heart disease Paternal Grandmother Heart disease Social History Smoking/Tobacco Use Status: Never Smoking risk assessment performed?: Yes Alcohol Intake: current Alcohol Intake frequency: a few times a month Alcohol type: beer Drug use: Never Substance use type: does not use Adopted: No Household members: significant other and family Housing: apartment Communication Needs: None Do you need help understanding health information?: Often Pets and animals: No Sexually active: Yes Do you think of yourself as: bisexual Current gender identity: male What is your relationship status?: living with partner How often do you talk on the phone with friends or family?: twice per week How often do you get together with friends or relatives?: twice per week How often do you attend advent or anabaptism services?: 1-3 times per year Do you belong to any clubs or organized social groups?: no Panel score (0-1 are the most socially isolated patients): 2 What type of physical activity do you participate in: other Details: lacrosse and running Duration: 15-30 minutes/day Frequency: 5-6 times per week Melonie/Hoahaoism: Latter Day Special melonie needs: No Seatbelt use: always Drive intox or ride w/intox armored car guard and driver: No Do you feel safe at home: Yes Do you feel safe in your relationship?: Yes
[2025-05-30 15:31] LABS: Abs Immature Grans 0.04 10^3/uL (0.0-0.06); HCT 47.4 % (40.0-50.0); HGB 16.0 g/dL (13.5-17.5); Immature Grans % 0.4 %; MCH 28.1 pg (27.0-33.0); MCHC 33.8 % (32.0-36.0); MCV 83 fL (80-95); MPV 8.6 fL (8.0-11.0); Platelet Count 253 10^3/uL (130-400); RBC 5.70 10^6/uL (4.36-5.78); RDW 12.8 % (11.8-14.1); RDW-SD 38.5 fL; WBC 10.24 10^3/uL (4.4-10.8)
[2025-05-30] MEDS: ACETAMINOPHEN 1,000 MG/100 ML BAG 400 MG IVPB (15:42)
[2025-05-30] MEDS: Normal Saline 500 ML IV (15:43)
[2025-05-30 15:49] VITALS: BP 113/85; PULSE 119; PULSE 121; RESP 20; O2SAT 94
[2025-05-30 15:55] LABS: ALT 67 U/L (16-63); AST 31 U/L (15-37); Albumin 4.0 g/dL (3.4-5.0); Alkaline Phosphatase 74 U/L (46-116); Anion Gap 8.6 mmol/L (3-11); BUN 12 mg/dL (7-18); Bilirubin, Total 0.8 mg/dL (0.2-1.0); CO2 29.4 mmol/L (21.0-32.0); Calcium 8.8 mg/dL (8.5-10.1); Chloride 101 mmol/L (98-107); Glucose 113 mg/dL (74-106); Lipase 29 U/L (<78); Potassium 3.7 mmol/L (3.5-5.1); Sodium 139 mmol/L (136-145); Total Protein 8.0 g/dL (6.4-8.2); Troponin I 5 ng/L (<or=76)
[2025-05-30 16:00] VITALS: BP 119/76; PULSE 118; PULSE 120; RESP 19; O2SAT 95
[2025-05-30 16:02] LABS: D-Dimer 777 ng/mlFEU (<500)
--- NOTE | 2025-05-30 16:10 | DI.RAD_ITS ---
Exam(s) XR CHEST 2V PA LATERAL EXAM: XR CHEST 2V PA LATERAL CLINICAL HISTORY: Chest pain TECHNIQUE: 2D digital imaging was performed of the chest. Two images were obtained. PA and lateral views were obtained. COMPARISON: CR RIGHT SHOULDER COMPLETE from 11/08/2016 FINDINGS: MEDIASTINUM: Normal. HEART: Normal. PULMONARY VASCULATURE: Normal. LUNGS: Clear. PLEURAL SPACE: No pleural effusion or pneumothorax. BONE:Within normal limits for the patient's age. OTHER FINDINGS:Normal. IMPRESSION: No acute pulmonary findings. DATA REPOSITORY: RADIATION DOSE DELIVERED:
--- NOTE | 2025-05-30 16:15 | DI.CT_ITS ---
Exam(s) CT CHEST PE CTA EXAM: CT CHEST PE CTA CLINICAL HISTORY: Chest Pain, Tachycardia, SOB Elevated Dimer. TECHNIQUE: Imaging Protocol: Axial CT angiography was performed with multi- slice acquisition and multi-planar and/or 3D reconstructions. Lung Computer Aided Detection (CAD) was utilized. CONTRAST MATERIAL: Intravenous: Omnipaque 350 contrast volume:100 mL COMPARISON: CR XR CHEST 2V PA LATERAL from 05/30/2025 FINDINGS: Tracheobronchial tree: Patent where visualized. No bronchiectasis. Pulmonary parenchyma: There is atelectasis seen in the dependent portion of the lungs. There is a calcified granuloma in the left lower lobe. No architectural distortion. Pulmonary Arteries: No evidence of filling defect to suggest pulmonary emboli. Mediastinum and Anaid: No dominant adenopathy or fluid collection. The esophagus is unremarkable. Visualized thyroid gland: Unremarkable. Pleura: No effusion or pneumothorax. Heart: The heart is not dilated. No coronary artery calcifications are seen. No pericardial effusion. Aorta: Thoracic aorta non-dilated. No evidence of dissection. Upper abdomen: Unremarkable. Soft tissues: Unremarkable. Bones: Within normal limits for the patient's age. IMPRESSION: 1. No evidence of pulmonary embolism, thoracic aortic dissection or aneurysm. 2. There is no acute pulmonary process. RADIATION DOSE DELIVERED: 88.93mGy.cm Total DLP DATA REPOSITORY: All CT scans at this facility are submitted to the National Radiology Data Registry (NRDR) Dose Index Registry (DIR) with the [employer] (ACR). RADIATION OPTIMIZATION: All CT scans at this facility use at least one of these dose optimization techniques: automated exposure control; mA and/or kV adjustment per patient size (includes targeted exams where dose is matched to clinical indication); or iterative reconstruction.
[2025-05-30 16:20] VITALS: BP 135/87; PULSE 112; PULSE 121; RESP 18; O2SAT 95
[2025-05-30 16:31] VITALS: BP 133/77; PULSE 110; PULSE 111; RESP 27; O2SAT 96
[2025-05-30] MEDS: Normal Saline Flush 10 ML SYR IVP ×2 (16:43→16:45)
[2025-05-30] MEDS: Normal Saline - Diluent 50 ML VIAL IJ (16:43)
[2025-05-30] MEDS: Omnipaque 350 MG/ML 100 ML BTL IJ (16:46)
[2025-05-30 16:47] LABS: Troponin I 5 ng/L (<or=76)
[2025-05-30 17:05] LABS: COVID-19 PCR Negative (Negative); RSV PCR Negative (Negative)
[2025-05-30] MEDS: Albuterol HFA 8 GM 60 PUFF INH IH (17:23)
[2025-05-30] MEDS: Ketorolac 15 MG/ML VIAL IVP (17:23)
[2025-05-30 17:33] VITALS: RESP 22
== END 2025-05-30 17:38 | disposition home or self-care (01) ==
PROVIDERS: Emergency Provider Registered Nurse Emergency
DX: M94.0 Chondrocostal junction syndrome [Tietze] (principal); R07.9 Chest pain, unspecified
CPT/HCPCS: 99284; 99285; 36415; 96375; 71275; 80053; 83690; 87637; 93005; 96365; 71046; 84484; 85025; 85379; 93010; J0131; J1885; J3490

== ENCOUNTER 2025-07-10 16:41 | Emergency (ER) | payer MEDICAID, SELFPAY ==
[2025-07-10 16:54] VITALS: BP 118/71; PULSE 88; RESP 18; TEMP 36.7; O2SAT 95
--- NOTE | 2025-07-10 16:55 | DI.RAD_ITS ---
Exam(s) XR ELBOW LT COMPLETE EXAM: XR ELBOW LT COMPLETE CLINICAL HISTORY: L elbow abrasion, fell on ice. TECHNIQUE: 2D digital imaging was performed. Three views. COMPARISON: No exams were available for comparison FINDINGS: BONES: No acute fracture is present. No bony destructive lesion is seen. Large olecranon enthesophyte. JOINTS: The elbow is normally aligned. No joint effusion is seen. SOFT TISSUE: Swelling over the olecranon. No foreign body. IMPRESSION: Large olecranon spur with overlying soft tissue swelling. No evidence of fracture. DATA REPOSITORY: RADIATION DOSE DELIVERED:
--- NOTE | 2025-07-10 17:28 | W.ED.GENAD ---
Discharge Plan Disposition Patient Disposition: Home Condition: Stable Discharge Details Clinical Impression: Abrasion of left elbow Primary Care Provider: Unknown,Unknown ED Provider: Humberto Hawley Home Meds and New Rx's Prescriptions: No Action calcium carbonate [Tums] 200 mg calcium (500 mg) tablet,chewable 200 mg PO BID PRN Patient Comments: as needed ondansetron 4 mg tablet,disintegrating 4 mg PO Q6H PRN (Reason: nausea and vomiting) Qty: 14 0RF Discharge Instructions Instructions: Abrasions ED Additional Instructions: You were seen in the emergency department for the abrasion of your left elbow, there is no fracture on x-ray, please keep the wound clean and covered, return for any signs of infection. Stand Alone Forms: Portal Information Discharge Data Discharge Date/Time-TO BE ENTERED AT DEPARTURE: 07/10/25 18:10 HPI General Date/Time Provider Initiated Documentation: 07/10/25 16:55. HPI Narrative: 30 year-old male presents to ED today by POV/ambulating with a chief complaint of L elbow abrasion/minor swelling, from slipping on black ice this morning. Quality described as abrasion and swelling to L elbow- patient is R hand dominant, no radiation to gross bruising, deformity, ROM limit, numbness/tingling. Severity is described as moderate. Palliating factors include nothing specific. Provoking factors include nothing specific. Patient not anticoagulated. Related Data Home Medications ?Medication ?Instructions ?Recorded ?Confirmed calcium carbonate (Tums) 200 mg PO BID PRN 06/14/20 07/10/25 ondansetron 4 mg disintegrating 4 mg PO Q6H PRN nausea and 08/18/24 07/10/25 tablet vomiting #14 tabs Previous Rx's ?Medication ?Instructions ?Recorded ondansetron 4 mg disintegrating 4 mg PO Q6H PRN nausea and 08/18/24 tablet vomiting #14 tabs Allergies Allergy/AdvReac Type Severity Reaction Status Date / Time No Known Drug Allergies Allergy Other (See Verified 07/10/25 17:37 Comment) General Stated Complaint: Orthopedic JANNY: 4 Review of Systems All systems reviewed & are unremarkable except as noted in HPI and below Exam Narrative Exam Narrative: GENERAL APPEARANCE: Well-nourished, non-toxic, awake and alert, atraumatic, no acute distress. SKIN: Warm, pink, dry, swelling and 3x3cm abrasion with scant capillary oozing of blood to the left elbow, no crepitus, full range of motion, left radial pulse 2+, no ecchymosis HEAD: Normocephalic, atraumatic, normal hair distribution for gender/age. EYES: Normal conjunctiva, no exudates on lids/lashes. ENT: Nares patent, no circumoral cyanosis, no facial swelling NECK: Supple, trachea midline, painless cervical ROM. LUNGS/CHEST: Non-labored respirations, normal A/P diameter, symmetrical expansion, no chest wall deformity HEART (CV/PV): Regular rate, no peripheral edema, no JVD. ABDOMEN: Soft, non-distended, no guarding. MSK: Normal ROM, no deformity to bilateral UEs or LEs, moving all extremities without weakness, no cyanosis, spine midline without tenderness, normal curvature. NEURO: Mental Status AAOx4 - alert to person, place, time, events No facial droop, no forehead involvement. Motor: No focal weakness - strength 5/5 in bilateral UEs and LEs, proximal and distal, symmetric. Sensory: sensation intact to light touch globally. Gait normal: patient ambulated without ataxia into ED room. PSYCH: euthymic, cooperative, pleasant, appropriate speech Course Vital Signs Vital signs: Vital Signs Temperature 36.7 C 07/10/25 16:54 Pulse 88 07/10/25 16:54 Respiratory Rate 18 07/10/25 16:54 Blood Pressure 118/71 07/10/25 16:54 Pulse Oximetry 95 07/10/25 16:54 Temperature 36.7 C 07/10/25 16:54 Temperature Source Oral 07/10/25 16:54 Pulse 88 07/10/25 16:54 Respiratory Rate 18 07/10/25 16:54 Blood Pressure 118/71 07/10/25 16:54 Blood Pressure Position Sitting 07/10/25 16:54 Pulse Oximetry 95 07/10/25 16:54 Oxygen Delivery Method Room Air 07/10/25 16:54 Oxygen Flow Rate 0 07/10/25 16:54 Pain Level 5 07/10/25 16:54 Medical Decision Making This dictation utilizes [id number] dictation software and may contain unedited grammatical errors. 30 year-old male presents to ED today by POV/ambulating with a chief complaint of L elbow abrasion/minor swelling, from slipping on black ice this morning. Quality described as abrasion and swelling to L elbow- patient is R hand dominant, no radiation to gross bruising, deformity, ROM limit, numbness/tingling. Severity is described as moderate. Palliating factors include nothing specific. Provoking factors include nothing specific. Patients' medical history: Noncontributory. Family and social history: Noncontributory. Pertinent exam findings / vital signs include swelling and 3x3cm abrasion with scant capillary oozing of blood to the left elbow, no crepitus, full range of motion, left radial pulse 2+, no ecchymosis. Differential / pathologies of concern include fracture, contusion, abrasion. Diagnostic studies of: -X-ray L elbow-no acute fracture seen . Interventions of: -Bandaged after general wound care cleaning by RN. ED Course/Assessment/Plan: 30-year-old male slipped on the ice injuring his left elbow, there is no fracture the area is a minor abrasion goes treated with general wound care and bandages, counseled on watching for signs of infection and return for any of this, follow-up x-ray outpatient if patient has persistent pain. Findings not consistent with fracture, neurovascular compromise. Disposition of abrasion of left elbow. Patient verbalized understanding of the plan and return to ED criteria and engaged in shared decision making. Medical Records Medical records reviewed: Yes I reviewed the patient's medical records. Imaging Data Radiologic Study: Attestation: I personally reviewed and interpreted this imaging study as follows: Imaging: X-Ray Radiologist's impression: EXAM: XR ELBOW LT COMPLETE CLINICAL HISTORY: L elbow abrasion, fell on ice. TECHNIQUE: 2D digital imaging was performed. Three views. COMPARISON: No exams were available for comparison FINDINGS: BONES: No acute fracture is present. No bony destructive lesion is seen. Large olecranon enthesophyte. JOINTS: The elbow is normally aligned. No joint effusion is seen. SOFT TISSUE: Swelling over the olecranon. No foreign body. IMPRESSION: Large olecranon spur with overlying soft tissue swelling. No evidence of fracture. PFSH All Active Problems (Updated 07/10/25 @ 17:29 by GENE Leslie) Abrasion of left elbow (Acute) Epididymitis (Acute) Nausea (Acute) Nausea (Acute) Insomnia (Acute) Mild obstructive sleep apnea (Acute) sleep study 03/21/19-Dr Zimmer 04/14/19-sleep clinic note: CPAP rx. Gastroesophageal reflux disease (Acute 09/05/16) Depression with anxiety (Acute 09/05/16) Medical History Attention deficit hyperactivity disorder (ADHD) (09/05/16) Surgical History History of esophagogastroduodenoscopy (EGD) (~06/25/20) Family History Mother Depression Father Alcohol abuse Heart disease Depression Paternal Grandfather Testicular cancer Heart disease Sister Depression Maternal Grandfather Heart disease Maternal Grandmother Heart disease Paternal Grandmother Heart disease Social History Smoking/Tobacco Use Status: Never Smoking risk assessment performed?: Yes Alcohol Intake: current Alcohol Intake frequency: a few times a month Alcohol type: beer Drug use: Never Substance use type: does not use Adopted: No Household members: significant other and family Housing: apartment Communication Needs: None Do you need help understanding health information?: Often Pets and animals: No Sexually active: Yes Do you think of yourself as: bisexual Current gender identity: male What is your relationship status?: living with partner How often do you talk on the phone with friends or family?: twice per week How often do you get together with friends or relatives?: twice per week How often do you attend buddhism or adventist services?: 1-3 times per year Do you belong to any clubs or organized social groups?: no Panel score (0-1 are the most socially isolated patients): 2 What type of physical activity do you participate in: other Details: lacrosse and running Duration: 15-30 minutes/day Frequency: 5-6 times per week Melonie/Anabaptist: Holiness Special melonie needs: No Seatbelt use: always Drive intox or ride w/intox concrete pile driver operator: No Do you feel safe at home: Yes Do you feel safe in your relationship?: Yes
== END 2025-07-10 18:10 | disposition home or self-care (01) ==
PROVIDERS: Emergency Provider Physician Assistant
DX: S50.312A Abrasion of left elbow, initial encounter (principal); W00.0XXA Fall on same level due to ice and snow, initial encounter
CPT/HCPCS: 99283 ×2; 73080